=== PATIENT | female | born 1970 | race Caucasian/White ===

== ENCOUNTER 2016-12-25 14:35 | Emergency (ER) | payer OTHER ==
[2016-12-25 14:40] VITALS: BP 161/73
--- NOTE | 2016-12-25 15:30 | UC ---
General HPI - HPI Summary HPI Summary: The patient comes in today for: 1. Right shoulder pain, "feel like my throat is swollen," "neck is stiff and sore," "achey like the flu," Onset: 3 days ago. Palliative/provocative: ibuprofen makes the symptoms go away. Sleep makes it better. Quality: Ache Region: Right shoulder, posterior neck, and neck Severity: Shoulder pain: 10/10 "or more." Neck pain: 7/10. However, she is not grimacing or having any crying or psychomotor slowing. She is able to carry on a slow and easy conversation with no problems. Time: Neck pain is always there as is the shoulder pain. Associated symptoms: Numbness: none. Fevers: She states that she has had some tingling in her feet. She has never had Lyme before nor any testing for it. * - History of Current Complaint Chief Complaint: COREYkin Stated Complaint: BUG BITE W/RASH,JOINT PAIN, THROAT COMPLAINT Time Seen by Provider: 12/25/16 15:22 Hx Obtained From: Patient - Allergy/Home Medications Allergies/Adverse Reactions: Allergies Allergy/AdvReac Type Severity Reaction Status Date / Time Amoxicillin [From Augmentin] AdvReac Vomiting Verified 12/25/16 14:40 Clavulanic Acid AdvReac Vomiting Verified 12/25/16 14:40 [From Augmentin] PMH/Surg Hx/FS Hx/Imm Hx Previously Healthy: No Neurological History: Seizures Other History Of: Negative For: HIV, Hepatitis B, Hepatitis C, Anticoagulant Therapy - Surgical History Surgical History: Yes Surgery Procedure, Year, and Place: 2 C-SECTIONS, TUBAL LIGATION, T&A, COLPOSCOPY - Family History Known Family History: Negative: Cardiac Disease, Hypertension, Diabetes - Social History Occupation: Employed Full-time Alcohol Use: Rare Substance Use Type: None Smoking Status (MU): Light Every Day Tobacco Smoker - Immunization History Most Recent Tetanus Shot: UNSURE Review of Systems Constitutional: Negative Skin: Negative Eyes: Negative ENT: Negative Respiratory: Negative Cardiovascular: Negative Gastrointestinal: Negative Genitourinary: Negative All Other Systems Reviewed And Are Negative: Yes Physical Exam Triage Information Reviewed: Yes Appearance: Well-Appearing, No Pain Distress, Well-Nourished Vital Signs: Initial Vital Signs Temp 97.8 F 12/25/16 14:37 Pulse 88 12/25/16 14:37 Resp 16 12/25/16 14:37 BP 161/73 12/25/16 14:37 Pulse Ox 98 12/25/16 14:37 Vital Signs Reviewed: Yes Eyes: Positive: Conjunctiva Clear. Negative: Discharge ENT: Positive: Hearing grossly normal. Negative: Pharyngeal erythema, Nasal drainage, TM bulging, TM dull, TM red, Tonsillar swelling, Tonsillar exudate Dental: Negative: Gross Decay/Caries @, Dental Fracture @ Neck: Positive: Supple, Nontender, No Lymphadenopathy. Negative: Nuchal Rigidity Respiratory: Positive: Chest non-tender, Lungs clear, No respiratory distress, No accessory muscle use. Negative: Crackles, Wheezing Cardiovascular: Positive: RRR, No Murmur Abdomen Description: Positive: Nontender, No Organomegaly, Soft. Negative: Distended, Guarding Musculoskeletal: Positive: Strength Intact, ROM Intact, No Edema, Other: - She has tenderness to palpation around the AC joint. She also has tenderness to palpation of the right paraspinous musculature. She has no nuchal rigidity. Neurological: Positive: Alert, Muscle Tone Normal Psychological: Positive: Age Appropriate Behavior, Consolable Skin: Positive: rashes - There is a large erythematous macular rash around the right shoulder and under the right shoulder.. 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 Radiology Interpretation Completed By: Radiologist Course/Dx - Course Course Of Treatment: Patient was told that I was concerned that she may have Lyme disease. She was told that she will have blood drawn and started on doxycycline for the presumed LYme disease. - Differential Dx - Multi-Symptom Provider Diagnoses: Right shoulder pain. Posterior neck pain. Erythema migrans. Lyme disease Discharge - Discharge Plan Condition: Stable Disposition: HOME Patient Education Materials: Lyme Disease (ED) Referrals: Micah Yoder MD [Primary Care Provider] - 1 Week (Please see your primary care provider in about a week to see how well you are doing. If you get worse between now and then, please be seen sooner by us or the ER.)
[2016-12-25] MEDS ORDERED: Naproxen TAB* 250 MG PO ONE (15:50)
--- NOTE | 2016-12-25 16:19 | RAD ---
Indication: Right shoulder pain. 3 views of the right shoulder demonstrates AC joint arthritis. There is no fracture or dislocation. No other bone or joint abnormality is noted. IMPRESSION: Moderate degree of AC joint arthritis without fracture.
== END 2016-12-25 16:25 | disposition home or self-care (01) ==
LOC: UCEAST 14:35
DX: M25.511 Pain in right shoulder (principal); M54.2 Cervicalgia; A26.0 Cutaneous erysipeloid; A69.20 Lyme disease, unspecified; Z72.0 Tobacco use
CPT/HCPCS: 86617; 86618; 99212; A9270-GY; G0463

== ENCOUNTER 2019-01-19 20:47 | Emergency (ER) | payer OTHER ==
--- OUTSIDE RECORDS SUMMARY | 2019-01-19 20:51 | XMS REPORT | Continuity of Care Document ---
:1970 External Reference #:[id number] Author Name Elle Vivar Care Team Providers Name Role Phone Micah Yoder MD Primary Care Physician Unavailable Payers Date Identification Numbers Payment Provider Subscriber Expires: 2015 Policy Number: [id number] Medicaid Yaritza Polanco Group Name: 1 1 [address] PayID: [id number] [place] [address] Effective: 2015 Policy Number: [id number] Cesar Chavez Yaritza Polanco PayID: [id number] [address] [place] [address] Problems Active Problems Provider Date Generalized epilepsy Peg Guerrier M.D. Onset: 01/28/2015 Shoulder joint pain Peg Guerrier M.D. Onset: 01/28/2015 Chronic otitis externa Robin Ferguson M.D. Onset: 03/08/2015 Impacted cerumen Robin Ferguson M.D. Onset: 03/08/2015 Sleep apnea Peg Guerrier M.D. Onset: 06/01/2016 Morbid obesity Phill Kiran M.D. Onset: 08/29/2018 Skin sensation disturbance Phill Kiran M.D. Onset: 05/30/2018 Epilepsy Phill Kiran M.D. Onset: 05/30/2018 Family History Date Family Member(s) Observation Comments General Thyroid Disease General Hypertension General Kidney Disease Father due to Kidney failure () - Due to strep throat Siblings 2 Social History Type Date Description Comments Sex Unknown Marital Status Lives With Alone Occupation Unemployed Hand Dominance Left-handed Tobacco Use Start: Unknown Patient is a current cigarette smoker, smokes every day Tobacco Use Start: Unknown Current Cigarette Smoker 5-10 Cigarettes Daily Tobacco Use Start: Unknown Never Smoked Cigars Tobacco Use Start: Unknown Never Smoked A Pipe Smokeless Tobacco Never Used Smokeless Tobacco ETOH Use Denies alcohol use Tobacco Use Start: Unknown Patient is a former End: Unknown smoker Recreational Drug Use Never Used Drugs Tobacco Use Start: Unknown Light tobacco smoker Occasionally smokes (10 or fewer when stressed cigarettes/day) Smoking Status Reviewed: 12/23/18 Light tobacco smoker Occasionally smokes (10 or fewer when stressed cigarettes/day) Exercise Type/Frequency Exercises regularly Pt. has 5 dogs. Allergies, Adverse Reactions, Alerts Active Allergies Reaction Severity Comments Date Augmentin stomach upset 06/01/2016 Inactive Allergies NKDA 09/26/2010 Medications Active Medications SIG Qnty Indications Ordering Provider Date Levetiracetam 1 tab by mouth 180tabs Stiven Tyson, 03/26/2015 1000mg twice a day N.P. Tablets Topiramate 1 tab by mouth 180tabs Stiven Tyson, 10/25/2012 100mg Tablets twice a day N.P. History Medications Mometasone Furoate mix 50:50 with 60ml [facility] 03/22/2015 - 0.1% olive oil and Glenn Ferguson 05/31/2016 Solution instill 2 to 3 drops in each ear as needed Ofloxacin (Otic) 3 drops affected 1units H60.8x1 [facility] 03/08/2015 - 0.3% ear twice a day Glenn Ferguson 05/31/2016 Solution Betamethasone to apply to 15g H60.8x1 [facility] 03/08/2015 - Dipropionate affected area Glenn Ferguson 05/31/2016 0.05% twice a day Ointment Levetiracetam 2 tabs by mouth 120tabs Ale Son NP 07/11/2013 - 500mg twice a day 03/26/2015 Tablets Mometasone Furoate Up light to both 1units [facility] 08/26/2012 - 0.1% ears t.i.d. or Glenn Ferguson 07/11/2013 Solution drops Dermotic applied the both 1units 380.23 [facility] 08/12/2012 - 0.01% Oil ears once a day Glenn Ferguson 07/11/2013 x1 month Vosol HC 3 gtts bid both 1units [facility] 08/12/2012 - 2-1% Solution ears Glenn Ferguson 07/11/2013 Elocon apply sparingly 1units 380.23 [facility] 08/05/2012 - 0.1% Ointment to both sides Glenn Ferguson 07/11/2013 affected area ears dispense one tube Topamax 1 1/2- 2 tabs by 60tabs Peg Guerrier, 06/07/2012 - 100mg Tablets mouth every day [facility] 07/11/2013 as directed Hydrocortisone Cream apply bid as 30gm [facility] 12/19/2010 - 1% needed Glenn Ferguson 07/11/2013 Clotrimazole 5 drops into r 45gm [facility] 11/28/2010 - 1% ear bid Glenn Ferguson 12/05/2010 Solution Cream Hydrocortisone Cream apply bid as 30gm [facility] 10/17/2010 - 1% needed Glenn Ferguson 11/28/2010 Lotrimin AF 5 drops right 1units 380.23 [facility] 10/17/2010 - 1% Solution ear b.i.dLovely Ferguson M.D. 11/28/2010 Elocon applied to 15g 380.23 [facility] 10/17/2010 - 0.1% Ointment affected area Glenn Ferguson 11/28/2010 b.i.d. Alcohol And Vinegar bid [facility] - Glenn Ferguson 10/16/2011 Lotrimin Ultra apply to 50units Unknown - 1% Cream affected area 07/11/2013 twice a day Multivitamins 1 po qd 100tabs Unknown - Tablets 12/22/2018 Vitamin D3 1 po qd 90caps Unknown - 1000Unit 08/28/2013 Capsules Vitamin C CR 1 po bid Unknown - 500mg 05/31/2016 Tablets ER Vitamin D3 one tablet by Unknown - 2000Unit mouth every day 06/11/2017 Tablets Magnesium 1 by mouth every Unknown - 250mg Tablets day 12/22/2018 Potassium 1-4 tabs po qd Unknown - 99mg Tablets 12/22/2018 Vital Signs Date Vital Result Comment 12/23/2018 9:44am Height 66 inches 5'6" Weight 334.00 lb Heart Rate 90 /min BP Systolic 124 mmHg BP Diastolic 84 mmHg BMI (Body Mass Index) 53.9 kg/m2 09/13/2018 1:47pm Height 66 inches 5'6" Weight 336.38 lb Heart Rate 80 /min BP Systolic Sitting 124 mmHg Lue regular cuff (forearm) BP Diastolic Sitting 82 mmHg Lue regular cuff (forearm) Respiratory Rate 20 /min O2 % BldC Oximetry 94 % BMI (Body Mass Index) 54.3 kg/m2 Neck Circumference in inches 17 08/29/2018 2:32pm Height 66 inches 5'6" Weight 338.00 lb Heart Rate 82 /min BP Systolic 138 mmHg BP Diastolic 82 mmHg BMI (Body Mass Index) 54.5 kg/m2 05/30/2018 10:23am Height 66 inches 5'6" Weight 324.00 lb Heart Rate 68 /min BP Systolic 128 mmHg BP Diastolic 82 mmHg BMI (Body Mass Index) 52.3 kg/m2 06/12/2017 9:51am Height 66 inches 5'6" Weight 300.38 lb Heart Rate 78 /min BP Systolic Sitting 128 mmHg BP Diastolic Sitting 80 mmHg Respiratory Rate 16 /min BMI (Body Mass Index) 48.5 kg/m2 06/01/2016 2:55pm Height 66 inches 5'6" Weight 300.00 lb Heart Rate 76 /min BP Systolic Sitting 128 mmHg BP Diastolic Sitting 84 mmHg Respiratory Rate 16 /min BMI (Body Mass Index) 48.4 kg/m2 03/22/2015 3:01pm Heart Rate 76 /min BP Systolic Sitting 124 mmHg BP Diastolic Sitting 82 mmHg 03/15/2015 3:28pm Heart Rate 78 /min BP Systolic Sitting 124 mmHg BP Diastolic Sitting 88 mmHg 03/08/2015 2:55pm Weight 303.00 lb Heart Rate 80 /min BP Systolic Sitting 132 mmHg BP Diastolic Sitting 80 mmHg 01/28/2015 10:46am Height 66 inches 5'6" Weight 300.00 lb Heart Rate 68 /min BP Systolic Sitting 132 mmHg BP Diastolic Sitting 80 mmHg Respiratory Rate 16 /min BMI (Body Mass Index) 48.4 kg/m2 07/30/2014 9:00am Height 66 inches 5'6" Weight 303.00 lb Heart Rate 80 /min BP Systolic Sitting 128 mmHg BP Diastolic Sitting 84 mmHg Respiratory Rate 16 /min BMI (Body Mass Index) 48.9 kg/m2 01/29/2014 9:47am Height 66 inches 5'6" Weight 295.00 lb Heart Rate 98 /min BP Systolic Sitting 124 mmHg BP Diastolic Sitting 86 mmHg Respiratory Rate 16 /min BMI (Body Mass Index) 47.6 kg/m2 08/28/2013 8:42am Heart Rate 72 /min BP Systolic Sitting 128 mmHg BP Diastolic Sitting 86 mmHg Respiratory Rate 16 /min 07/11/2013 9:51am Heart Rate 72 /min BP Systolic Sitting 140 mmHg BP Diastolic Sitting 80 mmHg Respiratory Rate 16 /min 06/21/2012 11:32am Heart Rate 76 /min BP Systolic 118 mmHg BP Diastolic 76 mmHg Respiratory Rate 16 /min 09/26/2010 8:55am Heart Rate 88 /min BP Systolic Sitting 132 mmHg BP Diastolic Sitting 80 mmHg Results Test Date Facility Test Result H/L Range Note Comp Metabolic Panel 10/25/2012 [facility] Sodium 142 mmol/L 133-[address] [place] [address] [phone] Potassium 4.5 mmol/L 3.5-5.0 Chloride 113 mmol/L High 101-111 Co2 Carbon Dioxide 25.0 mmol/L 22-32 Anion Gap 4.0 mmol/L 2-11 Glucose 98 mg/dL 70-100 Blood Urea Nitrogen 17 mg/dL 6-24 Creatinine 0.90 mg/dL 0.50-1.40 BUN/Creatinine Ratio 18.9 8-20 Calcium 10.9 mg/dL High 8.1-9.9 Total Protein 6.5 g/dL 6.2-8.1 Albumin 3.6 g/dL 3.6-5.4 Globulin 2.9 g/dL 2-4 Albumin/Globulin Ratio 1.2 1-3 Total Bilirubin 0.5 mg/dL 0.4-1.5 Alkaline Phosphatase 75 U/L 30-110 Alt 17 U/L 14-54 Ast 17 U/L 12-42 Egfr Non- 68.0 >60 Egfr 87.5 >60 1 CBC With 10/25/2012 [facility] White Blood 12.0 10^3/uL High 4.8-10.8 Manual Diff [address] [place] [address] [phone] Red Blood Count 4.04 10^6/uL 4.0-5.4 Hemoglobin 12.0 g/dL 12.0-16.0 Hematocrit 36 % 35-47 Mean Corpuscular Volume 89 fL 80-97 Mean Corpuscular Hemoglobin 30 pg 27-31 Mean Corpuscular HGB Conc 33 g/dL 31-36 Red Cell Distribution Width 14 % 10.5-15 Platelet Count 294 10^3/uL 150-450 Mean Platelet Volume 9 um3 7.4-10.4 Abs Neutrophils 8.9 10^3/uL High 1.5-7.7 Abs Lymphocytes 2.0 10^3/uL 1.0-4.8 Abs Monocytes 0.8 10^3/uL 0-0.8 Abs Eosinophils 0.2 10^3/uL 0-0.6 Abs Basophils 0 10^3/uL 0-0.2 Abs Nucleated RBC 0 10^3/uL Neutrophil % 79 % 38-83 Band % 1 % 0-8 Lymphocytes % 15 % Low 25-47 Monocytes % 3 % 0-13 Eosinophils % 2 % 0-6 RBC Morphology Normal Normal 1 Because ethnic data is not always readily available, this report includes an eGFR for both -Americans and non- Americans. The National Kidney Disease Education Program (NKDEP) does not endorse the use of the MDRD equation for patients that are not between the ages of 18 and 70, are , have extremes of body size, muscle mass, or nutritional status, or are non- or non-. According to the National Kidney Foundation, irrespective of diagnosis, the stage of the disease is based on the level of kidney function: Stage Description GFR(mL/min/1.73 m(2)) 1 Kidney damage with normal or decreased GFR 90 2 Kidney damage with mild decrease in GFR 60-89 3 Moderate decrease in GFR 30-59 4 Severe decrease in GFR 15-29 5 Kidney failure <15 (or dialysis) Procedures Date Code Description Status 07/12/2018 40572 Polysomnography Sleep Staging 4+ Parameters Completed 03/15/2015 29432 Remove Impacted Cerumen Completed 08/27/2013 04800 Polysomnography Sleep Staging 4+ Parameters Completed 08/12/2012 38216 Remove Impacted Cerumen Completed 02/06/2011 44248 Tympanometry Completed Encounters Type Date Location Provider Dx Diagnosis Office Visit 09/13/2018 Pulmonology And Karmen Brandon G47.33 Obstructive sleep 2:15p Sleep Services Of apnea (adult) Child Care Coordinator (pediatric) Z68.43 Body mass index (BMI) 50-59.9, adult Office Visit 08/29/2018 Shun Kiran G47.33 Obstructive sleep 3:15p Neurologic Glenn apnea (adult) Services Of Child Care Coordinator (pediatric) G40.909 Epilepsy, unsp, not intractable, without status epilepticus E66.01 Morbid (severe) obesity due to excess calories Office Visit 05/30/2018 Shun Pollock G40.909 Epilepsy, unsp, 10:30a Luis Kiran M.D. not intractable, Services Of Child Care Coordinator without status epilepticus R20.2 Paresthesia of skin G47.30 Sleep apnea, unspecified Office Visit 06/12/2017 Shun Parra G40.909 Epilepsy, unsp, 9:45a Neurologic Glenn Guerrier not intractable, Services Of Child Care Coordinator without status epilepticus R20.2 Paresthesia of skin Office Visit 06/01/2016 Shun Parra G40.909 Epilepsy, unsp, 2:45p Neurologic Glenn Guerrier not intractable, Services Of Child Care Coordinator without status epilepticus G47.30 Sleep apnea, unspecified Office Visit 03/22/2015 3:15p ENT Services Of [place] H60.61 Unspecified C.M.A. AT Glenn Ferguson chronic otitis [place] externa, right ear Office Visit 03/15/2015 3:15p [facility] [place] H61.21 Impacted cerumen, C.M.A. AT Glenn Ferguson right ear [place] H60.8x1 Other otitis externa, right ear Office Visit 03/08/2015 2:45p [facility] [place] 380.23 Otitis Externa C.M.A. AT Glenn Ferguson Other Chronic [place] 380.4 Impacted Cerumen Office Visit 01/28/2015 10:45a Shun Parra 345.90 Epilepsy Unspec Luis Guerrier M.D. W/O Intractable Services Of [facility] 726.10 Bursae & Tendon Disorders Shoulder Region Unspec Office Visit 07/30/2014 9:45a Shun Parra 345.90 Epilepsy Unspec Neurologic Glenn Guerrier W/O Intractable [facility] 784.0 Headache 339.10 Tension Type Headache, Unspecified Office Visit 01/29/2014 Shun Parra 345.00 Epilepsy 9:45a Neurologic Glenn Guerrier Nonconvulsive W/O Services Of [facility] Care Coordinator Intractable Office Visit 08/28/2013 Shun Parra 345.00 Epilepsy 8:45a Luis Guerrier M.D. Nonconvulsive W/O [facility] Intractable Office Visit 07/11/2013 Shun Parra 345.90 Epilepsy Unspec W/O 9:45a Luis Guerrier M.D. Intractable Services Of [facility] Office Visit 02/28/2013 Shun Parra 345.90 Epilepsy Unspec W/O 9:45a Luis Guerrier M.D. Intractable Services Of [facility] Care Coordinator Office Visit 10/25/2012 Shun Parra 345.90 Epilepsy Unspec W/O 8:45a Luis Guerrier M.D. Intractable Services Of [facility] Care Coordinator Office Visit 09/02/2012 [facility] 380.23 Otitis Externa 9:45a C.M.A. AT Glenn Ferguson Other Chronic [place] Office Visit 08/12/2012 [facility] 380.23 Otitis Externa 9:45a C.M.A. AT Glenn Ferguson Other Chronic [place] 380.4 Impacted Cerumen Office Visit 08/05/2012 [facility] 380.23 Otitis Externa 9:30a C.M.A. AT Glenn Ferguson Other Chronic [place] Office Visit 06/21/2012 Shun Parra 345.90 Epilepsy Unspec 11:15a Luis Guerrier M.D. W/O Intractable [facility] Office Visit 04/26/2012 Shun Parra 345.90 Epilepsy Unspec 8:45a Luis Guerrier M.D. W/O Intractable Services Of Child Care Coordinator Office Visit 10/16/2011 [facility] 380.23 Otitis Externa 9:15a C.M.A. AT [place] Ferguson. Other Chronic [place] 786.59 Pain Chest Other Office Visit 02/13/2011 10:00a [facility] [place] 380.23 Otitis Externa C.M.A. AT Glenn Ferguson Other Chronic [place] Office Visit 02/06/2011 9:00a [facility] [place] 380.23 Otitis Externa C.M.A. AT Glenn Ferguson Other Chronic [place] Office Visit 01/02/2011 9:45a [facility] [place] 380.23 Otitis Externa C.M.A. AT Glenn Ferguson Other Chronic [place] Office Visit 12/19/2010 9:00a [facility] [place] 380.23 Otitis Externa C.M.A. AT Glenn Ferguson Other Chronic [place] Office Visit 12/05/2010 9:00a [facility] [place] 380.23 Otitis Externa C.M.A. AT Glenn Ferguson Other Chronic [place] Office Visit 11/28/2010 9:15a [facility] [place] 380.23 Otitis Externa C.M.A. AT Glenn Ferguson Other Chronic [place] Office Visit 10/17/2010 9:30a [facility] [place] 380.23 Otitis Externa C.M.A. AT Glenn Ferguson Other Chronic [place] Office Visit 10/03/2010 9:00a [facility] [place] 380.23 Otitis Externa C.M.A. AT Glenn Ferguson Other Chronic [place] Office Visit 09/26/2010 9:30a [facility] [place] 380.23 Otitis Externa C.M.A. AT Glenn Ferguson Other Chronic [place] Plan of Treatment Future Appointment(s):03/28/2019 11:00 am - Stiven Tyson NAnnalisa at [place] [facility]05/26/2019 3:15 pm - Phill Kiran M.D. at [place] [facility]12/23/2018 - Stiven Tyson N.P.E66.01 Morbid (severe) obesity due to excess [id number] Epilepsy, unspecified, not intractable, without status epileNew Labs:CMP Panel, Ordered: 12/23/18CBC W/ Auto Diff, Ordered: 12/23/18Levetiracetam, Ordered: 12/23/18Topiramate, Ordered : 12/23/18Vitamin B12, Ordered: 12/23/18Folate Serum, Ordered: 12/23/18TSH Thyroid Stimulating Horm, Ordered: 12/23/18T4 Free Thyroxine, Ordered: Recommendations:have your labs done fasting in the [id number] HeadacheFollow up:3 months and as neededRecommendations:Riboflavin( Vitamin b-2) 400 mg duonnS84.83 Other fatigue
[2019-01-19 20:58] VITALS: BP 172/93
--- NOTE | 2019-01-19 21:55 | UC ---
Lower Extremity/Ankle HPI - HPI Summary HPI Summary: Patient presents for evaluation of her left lower extremity. Patient states she was walking when she is slipped Patient was wearing shoes without a consult. Patient states her leg went back then came fowar Patient with pain in the dorsum of her foot, dorsum of her knee, lateral ankle. Patient did not take anything for pain. Patient did apply ice. States his injury happened a few hours ago but hasn't gotten better ankles were swollen. Patient with a remote history of fracture to the same. Patient denies any paresthesias or weakness. Patient's medications reviewed this visit. Patient denies any other injuries. denies pain worse with walking not anticoagulated - History of Current Complaint Chief Complaint: UCLowerExtremity Stated Complaint: L LEG INJURY Time Seen by Provider: 01/19/19 20:58 Hx Obtained From: Patient Hx Last Menstrual Period: menopausal Severity Currently: Moderate Pain Intensity: 8 Pain Scale Used: 0-10 Numeric - Allergies/Home Medications Allergies/Adverse Reactions: Allergies Allergy/AdvReac Type Severity Reaction Status Date / Time amoxicillin [From Augmentin] Allergy Vomiting Verified 01/19/19 20:59 clavulanic acid Allergy Vomiting Verified 01/19/19 20:59 [From Augmentin] PMH/Surg Hx/FS Hx/Imm Hx Previously Healthy: Yes Other History Of: Negative For: HIV, Hepatitis B, Hepatitis C, Anticoagulant Therapy - Surgical History Surgical History: Yes Surgery Procedure, Year, and Place: 2 C-SECTIONS, TUBAL LIGATION, T&A, COLPOSCOPY - Family History Known Family History: Negative: Cardiac Disease, Hypertension, Diabetes - Social History Alcohol Use: Rare Substance Use Type: None Smoking Status (MU): Light Every Day Tobacco Smoker - Immunization History Most Recent Tetanus Shot: UNSURE Review of Systems All Other Systems Reviewed And Are Negative: Yes Constitutional: Positive: Negative Skin: Positive: Other - abraison Eyes: Positive: Negative Motor: Positive: Other - left LE Physical Exam - Summary Physical Exam Summary: Vital Signs Reviewed: Yes A+Ox3, no distress Eyes: Conjunctiva Clear ENT: Hearing grossly normal neck: supple Respiratory: Positive: No respiratory distress, No accessory muscle use Cardiovascular: skin color reflect adequate perfusion Musculoskeletal Exam : walk with limp favoring lle + SLE + flex/ext knee with mild discomfort mid tibia + flex/ext ankle with pain lateral malleolus and dorsum lateral foot. no crepitus no pain phalanges, no knee pain Neurological: Positive: Alert, + grss sensaiton Psychological: Positive: Normal Response To examiner Skin: Positive: no rash, no ecchymosis, mild edema lateral ankle and dorsum foot , no ecchyjosis small, non suturable abraison prox tib Triage Information Reviewed: Yes Vital Signs: Initial Vital Signs Temp 98.2 F 01/19/19 20:52 Pulse 90 01/19/19 20:52 Resp 18 01/19/19 20:52 BP 172/93 01/19/19 20:52 Pulse Ox 99 01/19/19 20:52 Diagnostics - Radiology No standard instances Radiology Interpretation Completed By: ED Physician - chip avulsion fracture dorsum talus neg ankle neg tib/fib Lower Extremity Course/Dx - Course Course Of Treatment: Patient presents to urgent care complaining of pain in the left lower extremity. Patient states she slipped earlier with mechanical fall. No strike her head. No neck or back pain. Patient sustained abrasion to her mid proximal tibia. Patient with pain in the dorsum of her left foot as well as left lateral malleolus and proximal tibia. No knee pain. Patient didn't take any. Patient apply ice. Patient with a remote history of injury to same ankle. On exam vital signs stable. Patient with a nonsuturable abrasion. Patient does not last tetanus was so update that today. Patient also with tenderness on the dorsum of her left foot as well as on the lateral malleolus. We'll check imaging. Patient will be likely tonight. Anticipate crutches Xavier and air splint. Motrin Tylenol elevate and with ortho follow-up. - Differential Dx/Diagnosis Provider Diagnosis: Avulsion fracture of left talus, Ankle sprain Discharge - Sign-Out/Discharge Documenting (check all that apply): Patient Departure All imaging exams completed and their final reports reviewed: No - Discharge Plan Condition: Stable Disposition: HOME Patient Education Materials: Diphtheria/Acellular Pertussis/Tetanus Booster Vaccine (By injection), Ankle Sprain (ED), Crutch Instructions (ED), Ankle Stirrup Splint (ED) Referrals: Micah Yoder MD [Primary Care Provider] - Ivett Garces MD [Medical Doctor] - Additional Instructions: -wear xavier wrap for comfort and support -apply ice (20 min at a time) every 2-3 hours for the next 2 days -use crutches until you can walk normally without a limp -Elevate your leg - this will help with swelling and pain - Alternate ibuprofen (advil, Motrin) 600mg and tylenol every 3 hours for pain. Take with food. Do NOT take for more than 4-5 days -Contact the orthopedic provider tomorrow morning to arrange a follow-up appointment this week. Contact your doctor or return with questions or concerns - Your arm will likely be sore tomorrow from your tetanus vaccine - this is normal As discussed, your radiograph was reviewed by the provider that treated you tonight. It will be read by a radiologist tomorrow morning. If there is a finding other than that discussed with you today, you will receive a call from a care provider. - Billing Disposition and Condition Condition: STABLE Disposition: Home
[2019-01-19] MEDS ORDERED: Tetan/Diph/Pertus SYR(Tdap)* 0.5 ML SYR(BOOSTRIX) use SYR IM ONE (22:03)
--- NOTE | 2019-01-20 07:53 | UC ---
- Progress Note Progress Note: I called pt re xr results at 7:50 AM No answer unable to leave message....mail box full please continue to try to contact patient no change in RX but needs to see Dr. Garces in follow up Course/Dx - Diagnoses Provider Diagnoses: Avulsion fracture of left talus Discharge - Sign-Out/Discharge Documenting (check all that apply): Patient Departure All imaging exams completed and their final reports reviewed: Yes - Discharge Plan Condition: Stable Disposition: HOME Patient Education Materials: Diphtheria/Acellular Pertussis/Tetanus Booster Vaccine (By injection), Ankle Sprain (ED), Crutch Instructions (ED), Ankle Stirrup Splint (ED) Referrals: Micah Yoder MD [Primary Care Provider] - Ivett Garces MD [Medical Doctor] - Additional Instructions: -wear rayshawn wrap for comfort and support -apply ice (20 min at a time) every 2-3 hours for the next 2 days -use crutches until you can walk normally without a limp -Elevate your leg - this will help with swelling and pain - Alternate ibuprofen (advil, Motrin) 600mg and tylenol every 3 hours for pain. Take with food. Do NOT take for more than 4-5 days -Contact the orthopedic provider tomorrow morning to arrange a follow-up appointment this week. Contact your doctor or return with questions or concerns - Your arm will likely be sore tomorrow from your tetanus vaccine - this is normal As discussed, your radiograph was reviewed by the provider that treated you tonight. It will be read by a radiologist tomorrow morning. If there is a finding other than that discussed with you today, you will receive a call from a care provider. - Billing Disposition and Condition Condition: STABLE Disposition: Home
== END 2019-01-19 22:22 | disposition home or self-care (01) ==
LOC: UCEAST 20:47
DX: S92.102 Unspecified fracture of left talus (principal); W18.40XD Slipping, tripping and stumbling without falling, unspecified, subsequent encounter; F17.210 Nicotine dependence, cigarettes, uncomplicated
CPT/HCPCS: 90715; 99212; G0463

== ENCOUNTER 2019-02-20 20:40 | Inpatient (IN) | payer OTHER ==
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
--- OUTSIDE RECORDS SUMMARY | 2019-02-20 22:10 | XMS REPORT | Summary of Care ---
:1970 Author Organization [facility] Address [address] [facility] [place] [address] Care Team Providers Name Role Phone Micah Yoder MD Primary Care Provider Reason for Visit Reason Comments Surgery Consult NEW, Right flank nodules Refer to Department Only (Routine) Status Reason Specialty Diagnoses / Referred By Referred To Procedures Contact Contact Closed GENERAL SURGERY / Diagnoses Subcutaneous nodule Debra Calvillo Miner, Jean F, MD General Surgery PA-C [address] [facility] [address] [facility] [address] [address] [place] [address] Phone: Encounter Details Date Type Department Care Team Description 02/07/2019 Office Visit Stow Bimal Godoy MD Subcutaneous nodule Surgery [address] [facility] (Primary Dx) [address] [facility] [place] [address] [place] [address] Allergies Active Allergy Reactions Severity Noted Date Comments Augmentin GI Reaction 09/29/2015 documented as of this encounter (statuses as of 02/08/2019) Medications Medication Sig Dispensed Refills Start Date End Date Status levetiracetam Take 1,000 0 Active (KEPPRA) 500 MG mg by mouth Oral Tab DAILY. topiramate 0 12/28/2018 Active (TOPAMAX) 100 MG Oral Tab Vitamin A 7500 Take 1 Cap 0 Discontinued UNITS Oral Cap by mouth 9 (Error) DAILY. Vitamin E 100 UNITS Take 1 Cap 0 Discontinued Oral Cap by mouth 9 (Error) DAILY. Levetiracetam 1000 0 12/28/2018 Discontinued MG Oral Tab 9 (Error) furosemide (LASIX) Take 1 Tab 5 Tab 0 01/07/2019 Discontinued 20 MG Oral Tab by mouth 9 (Error) DAILY. documented as of this encounter (statuses as of 02/08/2019) Active Problems Problem Noted Date Dermatophytosis of nail 07/29/2011 Seizure disorder 07/29/2011 Migraine, unspecified, without mention of intractable migraine without 2011 mention of status migrainosus Obesity, unspecified 07/29/2011 Seborrheic dermatitis, unspecified 07/29/2011 Adult BMI 45.0-49.9 kg/sq m documented as of this encounter (statuses as of 02/08/2019) Social History Tobacco Use Types Packs/Day Years Used Date Former Smoker Cigarettes 2.5 29 Quit: 06/13/2011 Smokeless Tobacco: Never Used Alcohol Use Drinks/Week oz/Week Comments Yes rare Sex Assigned at Date Recorded Not on file Job Start Date Occupation Industry Not on file Not on file Not on file Travel History Travel Start Travel End No recent travel history available. documented as of this encounter Last Filed Vital Signs Vital Sign Reading Time Taken Comments Blood Pressure - - Pulse 110 02/07/2019 12:26 PM EDT Temperature - - Respiratory Rate 18 02/07/2019 12:26 PM EDT Oxygen Saturation 97% 02/07/2019 12:26 PM EDT Inhaled Oxygen Concentration - - Weight 147.2 kg (324 lb 9.6 oz) 02/07/2019 12:26 PM EDT Height 167.6 cm (5' 6") 02/07/2019 12:26 PM EDT Body Mass Index 52.39 02/07/2019 12:26 PM EDT documented in this encounter Progress Notes Bimal Bran MD - 02/07/2019 12:30 PM EDT Lipoma Consult Office Visit PATIENT: Yaritza Polanco : 1970 DATE OF SERVICE: 02/08/2019 Debra Calvillo PA-C [address] [place] [address] Micah Yoder Chief Complaint Patient presents with Surgery Consult NEW, Right flank nodules HISTORY OF PRESENT ILLNESS: Patient presents to the office with a a few month history of back swelling. It has not increased in size since initially noticed. It does occasionally cause pain and discomfort. No drainage noted. Imaging was performed. A comprehensive review of systems was negative except for: Musculoskeletal: positive for back pain Past Medical History: Diagnosis Date Adult BMI 45.0-49.9 kg/sq m (HCC) Cervical dysplasia Edema Hyperparathyroidism (HCC) Lyme disease 2017 Obesity FRANCISCO (obstructive sleep apnea) Seizure (HCC) Past Surgical History: Procedure Laterality Date BILAT TUBAL DESTRUCT NEC SECTION NOS TONSILLECTOMY Social History Socioeconomic History Marital status: Spouse name: Not on file Number of children: Not on file Years of education: Not on file Highest education level: Not on file Occupational History Not on file Social Needs Financial resource strain: Not on file Food insecurity: Worry: Not on file Inability: Not on file Transportation needs: Medical: Not on file Non-medical: Not on file Tobacco Use Smoking status: Former Smoker Packs/day: 2.50 Years: 29.00 Pack years: 72.50 Types: Cigarettes Last attempt to quit: 06/13/2011 Years since quittin.6 Smokeless tobacco: Never Used Substance and Sexual Activity Alcohol use: Yes Comment: rare Drug use: No Sexual activity: Not on file Lifestyle Physical activity: Days per week: Not on file Minutes per session: Not on file Stress: Not on file Relationships Social connections: Talks on phone: Not on file Gets together: Not on file Attends zoroastrian service: Not on file Active member of club or organization: Not on file Attends meetings of clubs or organizations: Not on file Relationship status: Not on file Intimate partner violence: Fear of current or ex partner: Not on file Emotionally abused: Not on file Physically abused: Not on file Forced sexual activity: Not on file Other Topics Concern Not on file Social History Narrative Outpatient Medications as of 02/07/2019 Medication Sig Dispense Refill levetiracetam (KEPPRA) 500 MG Oral Tab Take 1,000 mg by mouth DAILY. topiramate (TOPAMAX) 100 MG Oral Tab 0 No current facility-administered medications on file as of 02/07/2019. Allergies Allergen Reactions Augmentin GI Reaction PHYSICAL EXAMINATION: Pulse 110 | Resp 18 | Ht 5' 6" (1.676 m) | Wt 324 lb 9.6 oz (147.2 kg) | SpO2 97% | BMI 52.39 kg/m GENERAL: alert, oriented, no acute distress. SKIN: normal, no rashes or abnormalities noted. 1 cm x 1 cm swelling c/w lipoma of the back HEAD: normocephalic, atraumatic ENT: sclera normal, anicteric, mucous membrane moist NECK: no mass, trachea midline, no thyromegaly. LUNGS: nonlabored breathing, no respiratory distress EXTREMITIES: no clubbing, cyanosis, or edema. NEUROLOGICAL: Normal gait, no focal deficits MUSCULOSKELETAL: Normal range of motion; no joint deformity noted ASSESSMENT: Lipoma of the back PLAN: Patient does not desire surgery at this time. Surveillance follow up was offered to determine stability but patient prefers to contact us at her convenience. documented in this encounter Plan of Treatment Health Maintenance Due Date Last Done Comments MAMMOGRAM (SCREENING) 10/11/2016 10/12/2015, 03/20/2013, 08/04/2011 COLONOSCOPY SCREENING 2018 ZOSTER IMMUNIZATION SERIES 2018 (1 of 2) LIPID DISORDER SCREENING 08/13/2018 08/13/2013, 08/04/2011 PAP SMEAR 09/28/2018 09/29/2015, 09/29/2015, 09/04/2011, Additional history exists INFLUENZA VACCINE (#1) 2019 DIABETES SCREENING 12/29/2019 12/28/2018, 09/29/2015, 08/13/2013 DEPRESSION SCREENING 01/08/2020 01/07/2019 HPV IMMUNIZATION SERIES Aged Out No longer eligible based on patient's age to complete this topic MENINGOCOCCAL VACCINE IMM Aged Out No longer eligible based on patient's age to complete this topic PNEUMOCOCCAL 0-64 YRS Aged Out No longer eligible based on patient's age to complete this topic documented as of this encounter Results Not on filedocumented in this encounter Visit Diagnoses Diagnosis Subcutaneous nodule - Primary Localized superficial swelling, mass, or lump documented in this encounter Guarantor Name Account Type Relation to Date of Phone Billing Patient Address Yaritza Polanco Personal/Family 1970 [address] ([address]) [phone] [place], [place] (Work) [id number] documented as of this encounter
--- OUTSIDE RECORDS SUMMARY | 2019-02-20 22:10 | XMS REPORT | Continuity of Care Document ---
:1970 External Reference #:[id number] Author Name Nara Cervantes Care Team Providers Name Role Phone Micah Yoder MD Primary Care Physician Unavailable Payers Date Identification Numbers Payment Provider Subscriber Expires: 2015 Policy Number: [id number] Medicaid Yaritza Polanco Group Name: 1 1 [address] PayID: [id number] [place] [address] Effective: 2015 Policy Number: [id number] Khris Yaritza Polanco Group Number: [id number] [address] Group Name: Medicaid [place] [address] PayID: [id number] Problems Active Problems Provider Date Generalized epilepsy [...] Thyroid Disease General Hypertension General Kidney Disease General Cancer Father due to Kidney failure () - Due to strep throat Siblings 2 Social History Type Date Description Comments Sex Unknown Marital Status Lives With Alone Occupation Currently Working Hand Dominance Left-handed Tobacco Use Start: Unknown [...] fewer when stressed cigarettes/day) Smoking Status Reviewed: 01/23/19 Light tobacco smoker Occasionally smokes (10 or [...] Medications Mometasone Furoate mix 50:50 with 60ml [facility] 03/22/2015 - 0.1% olive oil and Glenn Ferguson 05/31/2016 Solution instill 2 to 3 drops in each ear as needed Ofloxacin (Otic) 3 drops affected 1units H60.8x1 [facility] 03/08/2015 - 0.3% ear twice a day Glenn Ferguson 05/31/2016 Solution Betamethasone to apply to 15g H60.8x1 [facility] 03/08/2015 - Dipropionate affected area Glenn Ferguson 05/31/2016 0.05% twice a day Ointment Levetiracetam 2 tabs by mouth 120tabs Ale Son NP 07/11/2013 - 500mg twice a day 03/26/2015 Tablets Mometasone Furoate Up light to both 1units Robin 08/26/2012 - 0.1% ears t.i.dLovely or Gelnn Ferguson 07/11/2013 Solution drops Dermotic applied the both 1units 380.23 [facility] 08/12/2012 - 0.01% Oil ears once a day Glenn Ferguson 07/11/2013 x1 month Vosol HC 3 gtts bid both 1units [facility] 08/12/2012 - 2-1% Solution ears Aida FergusonDLovely 07/11/2013 Elocon apply sparingly 1units 380.23 [facility] 08/05/2012 - 0.1% Ointment to both sides Glenn Ferguson 07/11/2013 affected area ears dispense one tube Topamax 1 1/2- 2 tabs by 60tabs Peg Guerrier, 06/07/2012 - 100mg Tablets mouth every day M.DLovely 07/11/2013 as directed Hydrocortisone Cream apply bid as 30gm [facility] 12/19/2010 - 1% needed Aida FergusonDLovely 07/11/2013 Clotrimazole 5 drops into r 45gm [facility] 11/28/2010 - 1% ear bid Glenn Ferguson 12/05/2010 Solution Cream Hydrocortisone Cream apply bid as 30gm [facility] 10/17/2010 - 1% needed Glenn Ferguson 11/28/2010 Lotrimin AF 5 drops right 1units 380.23 [facility] 10/17/2010 - 1% Solution ear b.i.d. Glenn Ferguson 11/28/2010 Elocon applied to 15g 380.23 [facility] 10/17/2010 - 0.1% Ointment affected area Glenn Ferguson 11/28/2010 b.i.d. Alcohol And Vinegar bid Robin - Aida FergusonDLovely 10/16/2011 Lotrimin Ultra apply to 50units Unknown [...] 12/22/2018 Vital Signs Date Vital Result Comment 01/23/2019 11:22am Height 66 inches 5'6" Weight 334.00 lb BP Systolic 128 mmHg BP Diastolic 80 mmHg Respiratory Rate 18 /min Body Temperature 97.1 F Pain Level 4 BMI (Body Mass Index) 53.9 kg/m2 12/23/2018 9:44am Height 66 inches 5'6" Weight [...] H/L Range Note Comp Metabolic Panel 10/25/2012 [facility] Sodium 142 mmol/L 133-145 101 DATES [place] [id number] [phone] Potassium 4.5 mmol/L 3.5-5.0 Chloride 113 mmol/L [...] Egfr 87.5 >60 1 CBC With 10/25/2012 [facility] White Blood 12.0 10^3/uL High 4.8-10.8 Manual Diff [address] [place], [place] [id number] [phone] Red Blood Count 4.04 10^6/uL 4.0-5.4 Hemoglobin [...] dialysis) Procedures Date Code Description Status 07/12/2018 50820 Polysomnography Sleep Staging 4+ Parameters Completed 03/15/2015 94275 Remove Impacted Cerumen Completed 08/27/2013 48931 Polysomnography Sleep Staging 4+ Parameters Completed 08/12/2012 36116 Remove Impacted Cerumen Completed 02/06/2011 23842 Tympanometry Completed Encounters Type Date Location Provider Dx Diagnosis Office Visit 12/23/2018 [facility] Stiven Tyson, E66.01 Morbid ( severe) 10:30a [facility] N.P. obesity due to excess calories G40.909 Epilepsy, unsp, not intractable, without status epilepticus R51 Headache R53.83 Other fatigue Office Visit 09/13/2018 2:15p Pulmonology And Karmen G47.33 Obstructive sleep Sleep [facility] [place] apnea (adult) Home Health Care Physician (pediatric) Z68.43 Body mass index (BMI) 50-59.9, adult Office Visit 08/29/2018 [facility] Phill Kiran G47.33 Obstructive sleep 3:15p Neurologic Glenn apnea (adult) [facility] (pediatric) G40.909 Epilepsy, unsp, not intractable, without status epilepticus E66.01 Morbid (severe) obesity due to excess calories Office Visit 05/30/2018 [facility] G40.909 Epilepsy, unsp, 10:30a Luis Kiran M.D. not intractable, [facility] Physician without status epilepticus R20.2 Paresthesia of skin G47.30 Sleep apnea, unspecified Office Visit 06/12/2017 Shun Parra G40.909 Epilepsy, unsp, 9:45a Neurologic Glenn Guerrier not intractable, [facility] Physician without status epilepticus R20.2 Paresthesia of skin Office Visit 06/01/2016 Shun Parra G40.909 Epilepsy, unsp, 2:45p Neurologic Glenn Guerrier not intractable, [facility] Physician without status epilepticus G47.30 Sleep apnea, unspecified Office Visit 03/22/2015 3:15p ENT [facility] H60.61 Unspecified C.M.A. AT Glenn Ferguson chronic otitis [place] externa, right ear Office Visit 03/15/2015 3:15p ENT [facility] H61.21 Impacted cerumen, C.M.A. AT Glenn Ferguson right ear [place] H60.8x1 Other otitis externa, right ear Office Visit 03/08/2015 2:45p ENT [facility] 380.23 Otitis Externa C.M.A. AT Glenn Ferguson Other Chronic [place] 380.4 Impacted Cerumen Office Visit 01/28/2015 10:45a Shun Parra 345.90 Epilepsy Unspec Neurologic Glenn Guerrier W/O Intractable [facility] 726.10 Bursae & Tendon Disorders Shoulder Region Unspec Office Visit 07/30/2014 9:45a Shun Parra 345.90 Epilepsy Unspec Luis Guerrier M.D. W/O Intractable [facility] 784.0 Headache 339.10 Tension Type Headache, Unspecified Office Visit 01/29/2014 Shun Parra 345.00 Epilepsy 9:45a Neurologic Glenn Guerrier Nonconvulsive W/O [facility] Intractable Office Visit 08/28/2013 Shun Parra 345.00 Epilepsy 8:45a Luis Guerrier M.D. Nonconvulsive W/O [facility] Intractable Office Visit 07/11/2013 Shun Parra 345.90 Epilepsy Unspec W/O 9:45a Luis Guerrier M.D. Intractable [facility] Physician Office Visit 02/28/2013 Shun Parra 345.90 Epilepsy Unspec W/O 9:45a Neurologic Glenn Guerrier Intractable [facility] Physician Office Visit 10/25/2012 Shun Parra 345.90 Epilepsy Unspec W/O 8:45a Luis Guerrier M.D. Intractable [facility] Office Visit 09/02/2012 ENT [facility] 380.23 Otitis Externa 9:45a C.M.A. AT Glenn Ferguson Other Chronic Willie Office Visit 08/12/2012 ENT [facility] 380.23 Otitis Externa 9:45a C.M.A. AT Glenn Ferguson Other Chronic [place] 380.4 Impacted Cerumen Office Visit 08/05/2012 [facility]NT [facility] [place] 380.23 Otitis Externa 9:30a C.M.A. AT Glenn Ferguson Other Chronic [place] Office Visit 06/21/2012 [facility] 345.90 Epilepsy Unspec 11:15a Neurologic Glenn Guerreir W/O Intractable [facility] Physician Office Visit 04/26/2012 [facility] Par[facility] 345.90 Epilepsy Unspec 8:45a Neurologic Glenn Guerrier W/O Intractable [facility] Phys[facility] Office Visit 10/16/2011 [facility] 380.23 Otitis Externa 9:15a C.M.A. AT Glenn Ferguson Other Chronic [place] 786.59 Pain Chest Other Office Visit 02/13/2011 10:00a ENT [facility] [place] 380.23 Otitis Externa C.M.A. AT Glenn Ferguson Other Chronic [place] Office Visit 02/06/2011 9:00a ENT [facility] [place] 380.23 Otitis Externa C.M.A. AT Glenn Ferguson Other Chronic [place] Office Visit 01/02/2011 9:45a ENT [facility] [place] 380.23 Otitis Externa C.M.A. AT Glenn Ferguson Other Chronic [place] Office Visit 12/19/2010 9:00a ENT [facility] [place] 380.23 Otitis Externa C.M.A. AT Glenn Ferguson Other Chronic [place] Office Visit 12/05/2010 9:00a ENT [facility] [place] 380.23 Otitis Externa C.M.A. AT Glenn Ferguson Other Chronic [place] Office Visit 11/28/2010 9:15a ENT [facility] [place] 380.23 Otitis Externa C.M.A. AT Glenn Ferguson Other Chronic [place] Office Visit 10/17/2010 9:30a ENT [facility] [place] 380.23 Otitis Externa C.M.A. AT Glenn Ferguson Other Chronic [place] Office Visit 10/03/2010 9:00a ENT [facility] [place] 380.23 Otitis Externa C.M.A. AT Glenn Ferguson Other Chronic [place] Office Visit 09/26/2010 9:30a ENT [facility] 380.23 Otitis Externa [place] AT Glenn Ferguson Other Chronic [place] Plan of Treatment Future Appointment(s):02/25/2019 10:45 am - Dawson Jett M.D. at [facility] [place]03/28/2019 11:00 am - Stiven Tyson N.P. at [facility]05/26/2019 3:15 pm - Phill Kiran M.D. at [facility]01/23/2019 - Dawson Jett M.D.S93.402A Sprain of unspecified ligament of left ankle, initial encounterFollow up:3 weeks
[2019-02-20 22:39] LABS: Hematocrit 41 % (35-47); Hemoglobin 13.6 g/dL (12.0-16.0); Mean Corpuscular HGB Conc 33 g/dL (31-36); Mean Corpuscular Hemoglobin 28 pg (27-31); Mean Corpuscular Volume 85 fL (80-97); Mean Platelet Volume 9.4 fL (7.4-10.4); Platelet Count 282 10^3/uL (150-450); Red Blood Count 4.79 10^6 /uL (3.70-4.87); Red Cell Distribution Width 15 % (10-15); White Blood Count 23.4 10^3/uL (3.5-10.8)
[2019-02-20 22:55] LABS: ALT 127 U/L (7-52); Albumin 4.1 g/dL (3.2-5.2); Albumin/Globulin Ratio 1.4 (1-3); Alkaline Phosphatase 92 U/L (34-104); BUN/Creatinine Ratio 30.8 (8-20); Blood Urea Nitrogen 40 mg/dL (6-24); CO2 Carbon Dioxide 22 mmol/L (22-32); Chloride 109 mmol/L (101-111); EGFR African American 52.5 (>60); EGFR Non-African American 43.4 (>60); Globulin 2.9 g/dL (2-4); Glucose 106 mg/dL (70-100); Sodium 141 mmol/L (135-145)
[2019-02-20] MEDS ORDERED: Lidocaine 2% EPI 1:200000 MPF* 10 ML VIAL INJ ONE (22:57)
[2019-02-20 22:58] LABS: Calcium 13.8 mg/dL (8.6-10.3)
[2019-02-20 22:59] LABS: Troponin I 0.05 ng/mL (<0.04)
[2019-02-20] MEDS ORDERED: Lidocaine 2% w/ EPI 1:200,000* 20 ML SDV VIAL INJ ONE (23:00)
[2019-02-20 23:07] LABS: ABS Lymphocytes 1.3 10^3/ul (1.0-4.8); ABS Monocytes 2.2 10^3/ul (0-0.8); ABS Neutrophils 19.9 10^3/ul (1.5-7.7); Lymphocyte % 5.5 %
[2019-02-20 23:18] LABS: Acetaminophen < 15 mcg/mL; Alcohol < 10 mg/dL (<10)
[2019-02-20 23:38] LABS: Anion Gap 10 mmol/L (2-11)
[2019-02-21 00:23] LABS: Potassium Redraw 3.5 mmol/L (3.5-5.0)
[2019-02-21] MEDS ORDERED: NS 0.9% 1000 ML** 2,000 ML IV ONE (00:27)
[2019-02-21] MEDS ORDERED: NS 0.9% 1000 ML** 1,000 ML IV SCH (00:30)
[2019-02-21 00:52] LABS: C Reactive Protein 93.21 mg/L (<8.01)
[2019-02-21 00:53] LABS: Urine Appearance Cloudy; Urine Bacteria 1+ (Absent); Urine Bilirubin Negative (Negative); Urine Blood 3+ (Negative); Urine Color Amber; Urine Glucose Negative (Negative); Urine Ketones 1+ (Negative); Urine Nitrite Positive (Negative); Urine Protein 2+(100 mg/dL) (Negative); Urine Red Blood Cell 2+(6-10/hpf) (Absent); Urine Specific Gravity 1.027 (1.010-1.030); Urine Urobilinogen Positive (Negative); Urine White Blood Cell 2+(11-20/hpf) (Absent)
[2019-02-21 01:11] LABS: Urine Benzodiazepine Screen None Detected (None Detect); Urine Opiates Screen None Detected (None Detect)
[2019-02-21 01:33] LABS: Creatine Kinase 14961 U/L (10-223)
[2019-02-21 01:59] LABS: Erythrocyte Sed Rate 15 mm/Hr (0-29)
--- NOTE | 2019-02-21 03:05 | HP ---
CC: Dr. Yoder; Dr. Kiran * HISTORY AND PHYSICAL: DATE OF ADMISSION: 02/21/19 PRIMARY CARE PROVIDER: Dr. Yoder. NEUROLOGIST: Dr. Kiran. CHIEF COMPLAINT: Altered mental status. HISTORY OF PRESENT ILLNESS: Ms. Polanco is a 48-year-old female who has a history of seizure disorder, obstructive sleep apnea and obesity, who was found at home lying on the floor partially naked by her children. The patient was unable to get up from the floor on her own. She was noted to be quite confused. She was talking about a gentleman named, Flaco Goddard, who she states is an FBI agent. She states that her house has been under surveillance and she did not realize it. She was also told by this gentleman that he could get her into a prestigious dog training school. She states he also made her feel quite bad as he showed her images of her mom's van that had been involved in a crash and told her, her mom had . She was also told that her dog mauled a aircraft electronics technical officer and killed him. According to the patient's family including her mother, none of this appears to be true though the patient's son did find Flaco Goddard's name and number in the patient's phone. The patient is very fearful of providing any information regarding this individual. She is unable to tell me how long she was on the floor for. She did tell me that she had a hard time getting up and she was trying to get up on her elbows and knees and was unable to do so. She does not know if she has been eating or drinking recently. She really cannot provide any other information. She was quite reserved and seems to be holding back thoughts at times. PAST MEDICAL HISTORY: 1. Seizure disorder. 2. Obesity. 3. FRANCISCO. PAST SURGICAL HISTORY: 1. x2. 2. Tonsils/adenoids. MEDICATIONS: 1. Topamax 100 mg p.o. b.i.d. 2. Keppra 1000 mg p.o. b.i.d. ALLERGIES: AUGMENTIN. FAMILY HISTORY: Mom is living. She is 76. She has a history of hypertension. Dad is . Sounds as though he from bacteremia, but also had a history of renal failure from post streptococcal glomerulonephritis. SOCIAL HISTORY: The patient states that she has been a former smoker but then been trying to quit. She does not drink alcohol. 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 She is . She has 3 children. She thinks that her mom to be her healthcare proxy. She had a very difficult time making this decision, however. REVIEW OF SYSTEMS: The patient is not really able to answer any of my questions. Her symptoms over the last couple of days, she states I do not know having fevers or chills or even if she has been eating or drinking. She does admit to left lower quadrant abdominal pain. She was unable to tell me anything more about this, however. PHYSICAL EXAMINATION GENERAL: The patient is a well-developed, morbidly obese middle age female, seen lying flat in the stretcher, in no acute distress. VITAL SIGNS: Blood pressure 145/101, pulse 100, respirations 11, temp 99.5, O2 sat 97% on room air. HEENT: Pupils are equal and round. Extraocular muscles are intact. Oropharynx is clear. Oral mucosa is dry. There is no submandibular, cervical, or supraclavicular adenopathy. PULMONARY: Lungs are clear to auscultation anteriorly and at the lateral bases. CARDIAC: Normal S1, S2. Heart rate is mildly tachycardiac. It is regular. There is no lower extremity edema. ABDOMEN: Bowel sounds are present. Abdomen is soft and nondistended. She is mildly tender to palpation in the left lower quadrant. MUSCULOSKELETAL: The patient is able to move all 4 extremities. Her toes are mildly cyanotic. SKIN: Warm and dry. There are no rashes. She does have yeast infection involving her abdominal folds. The left side being worse than the right. She has abrasions and erythema on her elbows and knees bilaterally. NEURO: Cranial nerves II through XII are grossly intact. Sensation is intact to light touch throughout. Strength appears to be normal throughout. PSYCH: The patient is alert. She is oriented to being in the hospital. She is oriented to being (I started seeing the patient on 02/20/19). She does have what seems to be delusions of her house being under surveillance by the FBI as well as speaking to an FBI agent. DIAGNOSTIC STUDIES/LAB DATA: WBC 23.4, hemoglobin 13.6, hematocrit 41, platelets 282. Sodium 141, potassium 3.5, chloride 109, CO2 of 22, BUN 40, creatinine 1.3, glucose 106, lactic acid 2.6, calcium 13.8. Bilirubin 1.2, AST 417, ALT 127, alk phos 92. Ammonia 45. Troponin 0.05. Albumin is 4.1. Acetaminophen less than 15. Serum alcohol less than 10. CT brain no acute intracranial pathology is appreciated. ASSESSMENT AND PLAN: Ms. Polanco is a 48-year-old female who has a history of seizure disorder, obesity, and obstructive sleep apnea, who presents to the emergency room with weakness and altered mental status. 1. Altered mental status. At this point, my suspicion is the patient's altered mental status is secondary to marked hypercalcemia. The degree of calcium elevation could be leading to psychosis. Her Keppra also could be leading to psychosis. At this point, I am not holding her Keppra as I do not want her to have any seizures. However, discussion with Neurology could be had to discuss whether or not she should be changed to a different antiepileptic. 2. Hypercalcemia. The etiology behind this is not clear. Her calcium is markedly elevated making primary hyperparathyroidism seem slightly less likely though I will start by ordering a intact PTH level. The degree of calcium elevation certainly could be related to an underlying malignancy. The patient did undergo CT scan of the brain, which was negative. If she was having abdominal pain, I will be getting a CT of the abdomen and pelvis and this will also help us identify if there are any abnormalities intraabdominally. The patient will be treated with normal saline 2 L bolus because she appears quite dry, followed by Lasix 20 mg IV after the 2 L are done. She may benefit from having bisphosphonate administration sooner rather than later. I will hold off on ordering Zoledronic acid for now. Consultation with Endocrinology should be made in the morning. If the patient's PTH level is not elevated, 25-OH vitamin D levels and 125 vitamin D levels should be obtained. Malignancy workup also should be undertaken if her PTH is not elevated. She does have mild renal dysfunction with a creatinine and because of this, we will send off an SPEP. 3. Leukocytosis. The patient has a marked leukocytosis of 23.400. Other than the yeast infection in her abdominal skin folds, there are no clear signs of infection. I will be getting a CT of the abdomen and pelvis to evaluate the abdominal pain and in addition, will be obtaining a chest x-ray. I am going to hold off on antibiotic therapy at this point. 4. Lactic acidosis. I suspect the patient's lactic acid level was elevated due to dehydration. She is going to aggressively hydrated for her hypercalcemia and we will followup the lactic acid level at 2:30 a.m. 5. Elevated liver function tests. The patient's AST and ALT are elevated. I do not have any recent labs to compare to. I do question if she may have an elevated CPK and therefore this has been added on. It was unclear how long she was down on the ground for. Additionally, she will be getting the CT scan of the abdomen and pelvis, which may give us a cause for her elevated LFTs. 6. Elevated troponin. The patient denies any chest pain at this point. A question of this could be demand ischemia or perhaps even related to rhabdomyolysis. We will get a follow up troponin at 2:30 a.m. as well as an EKG now as this is yet to be performed. My suspicion is low that the elevated troponin in fact is representing an acute coronary syndrome. 7. Seizure disorder. I am going to continue both Keppra and Topamax for now. As above, however, Keppra can cause psychosis, can also cause elevated LFTs. Discussion with Neurology can be had to determine if this should be changed to something else at least temporarily. 8. obstructive sleep apnea. We will order CPAP for sleep. 9. DVT prophylaxis. According to the Adult Thrombosis Prophylaxis Risk Factor Assessment Guide, the patient has a total risk factor score of 2, making her moderate risk. She will receive Lovenox 40 mg subcutaneous daily starting in the evening of 02/21/19. 10. The patient is a full code. TIME SPENT: Seventy-five minutes was spent admitting this patient. [id number]/[facility] #: [id number] MTDD
[2019-02-21 03:15] LABS: Troponin I 0.05 ng/mL (<0.04)
[2019-02-21] MEDS: Nystatin CREAM* 15 GM TUBE TOPICAL SCH ×4 (03:22→21:13)
[2019-02-21] MEDS ORDERED: Furosemide IV* 10 MG/ML 2 ML VIAL (20 MG) IV ONE (04:00)
[2019-02-21] MEDS: Topiramate TAB(*) 100 MG PO SCH ×2 (07:43→21:12)
[2019-02-21] MEDS: cefTRIAXone(*) 1 GM in NS 0.9% 50 ML* 50 ML IVPB SCH (07:43)
[2019-02-21] MEDS: levETIRAcetam TAB* 500 MG PO SCH ×2 (07:43→21:12)
[2019-02-21 08:48] LABS: ABS Lymphocytes 1.8 10^3/ul (1.0-4.8); ABS Monocytes 1.4 10^3/ul (0-0.8); Eosinophil % 0.1 %; Hematocrit 36 % (35-47); Hemoglobin 11.9 g/dL (12.0-16.0); Lymphocyte % 10.4 %; Mean Corpuscular HGB Conc 33 g/dL (31-36); Mean Corpuscular Hemoglobin 29 pg (27-31); Mean Corpuscular Volume 86 fL (80-97); Mean Platelet Volume 9.2 fL (7.4-10.4); Platelet Count 235 10^3/uL (150-450); Red Blood Count 4.17 10^6 /uL (3.70-4.87); Red Cell Distribution Width 15 % (10-15); White Blood Count 17.2 10^3/uL (3.5-10.8)
[2019-02-21] MEDS ORDERED: levETIRAcetam TAB* 500 MG PO SCH (09:00)
[2019-02-21 09:17] LABS: Calcium 11.3 mg/dL (8.6-10.3); EGFR Non-African American 58.7 (>60); Potassium 3.2 mmol/L (3.5-5.0)
[2019-02-21 09:34] LABS: Folate 9.42 ng/mL (>3.99)
[2019-02-21] MEDS ORDERED: NS 0.45% KCl 20 Meq 1000 ML* 1,000 ML IV SCH (11:00)
[2019-02-21] MEDS ORDERED: Iodixanol* (CONTRAST) 320 MG/ML 100 ML SDV IV ONE (12:02)
[2019-02-21 15:50] LABS: BUN/Creatinine Ratio 30.8 (8-20); Calcium 12.5 mg/dL (8.6-10.3); EGFR African American 79.2 (>60); EGFR Non-African American 65.4 (>60); Phosphorus 2.1 mg/dL (2.5-5.0); Potassium 3.2 mmol/L (3.5-5.0)
--- NOTE | 2019-02-21 16:07 | PN ---
Subjective Date of Service: 02/21/19 Interval History: Talked to patient and her mother this morning for 30 mins. Patient stayed alone at home, was last found normal yesterday morning when a friend/relative called her. Was found to be lying on the ground yesterday with disorientation and delusions. Pt told me she could still hear a man here was talking to her and told her he was making lists of phones etc. She denied she saw him. She could tell me she was in ED yesterday, but couldn't recall events yesterday. She felt weak all over, especially legs. She also complained of back and left hip pain. Objective Active Medications: Enoxaparin Sodium (Lovenox(*)) 40 mg SUBCUT Q24H [facility] Ceftriaxone Sodium 1 gm/ (Sodium Chloride) 50 mls @ 100 mls/hr IVPB Q24H [facility] Last Admin: 02/21/19 07:43 Dose: 100 mls/hr Potassium Chloride/Sodium Chloride (Ns 0.45% Kcl 20 Meq 1000 Ml*) 1,000 mls @ 150 mls/hr IV PER RATE [facility] Last Admin: 02/21/19 15:25 Dose: 150 mls/hr Levetiracetam (Keppra Tab*) 1,000 mg PO BID [facility] Last Admin: 02/21/19 07:43 Dose: 1,000 mg Nystatin (Nystatin Cream*) 1 applic TOPICAL TID [facility] Last Admin: 02/21/19 07:56 Dose: 1 applic Ondansetron HCl (Zofran Inj*) 4 mg IV Q4H [facility] Topiramate (Topamax(*)) 100 mg PO BID [facility] Last Admin: 02/21/19 07:43 Dose: 100 mg Vital Signs - 8 hr 02/21/19 11:15 Temperature 98.0 F Pulse Rate 87 Respiratory 20 Rate Blood Pressure 136/77 (mmHg) O2 Sat by Pulse 99 Oximetry Oxygen Devices in Use Now: None Exam: General - Lethargic, slow speech and response Eyes - PERRLA, EOM intact HEENT- no abnormality Lymph Nodes - No lymphadenopathy Cardiovascular - S1S2, unable to auscultate clearly. Lungs - Clear to auscltation, no use of acessory muscles, no crackles or wheezes. Skin - No rashes, skin warm and dry, no erythematous areas Abdomen - Normal bowel sounds, abdomen soft and nontender Extremeties - No edema, cyanosis or clubbing Musculo Skeletal - tenderness over lumbar spine probably L2-3 area. ROM normal Neurological Alert and oriented x 3, CN 2-12 grossly intact. Strength 3/5 over LL, 4/5 over UL reflexes 1+ over 4 limbs Result Diagrams: 02/21/19 08:23 02/21/19 15:24 Assess/Plan/Problems-Billing Assessment: 48 y/o female with history of seizure disorder, FRANCISCO, morbid obesity, presented as disorientation and fall, found to have hypercalcemia, elevated liver enzymes , rhabdomyolysis. Diagnosis currently is unclear. Her hypercalcemia with midly raised PTH could indicate primary hyperparathyroidism, but malignancy such as MM is a concern due to elevated liver enzymes. - Patient Problems (1) Hypercalcemia Current Visit: Yes Status: Acute Code(s): E83.52 - HYPERCALCEMIA SNOMED Code(s): 52604488 Comment: - iv hydration and iv lasix was given - consultted sports administrator Dr. Ugalde, iv bisphosphonate is not indicated if calcium<11.5 - continue iv hydration, repeat every 4 hours (2) Liver enzyme elevation Current Visit: Yes Status: Acute Code(s): R74.8 - ABNORMAL LEVELS OF OTHER SERUM ENZYMES SNOMED Code(s): 984045954 Comment: AST/ALT >2, alcoholic likely CT Abd/pelvis today (3) Rhabdomyolysis Current Visit: Yes Status: Acute Code(s): M62.82 - RHABDOMYOLYSIS SNOMED Code(s): 148658381 Comment: continue iv hydration trace ck level (4) DARRYL (acute kidney injury) Current Visit: Yes Status: Acute Code(s): N17.9 - ACUTE KIDNEY FAILURE, UNSPECIFIED SNOMED Code(s): 61454136 (5) Delusion Current Visit: Yes Status: Acute Code(s): F22 - DELUSIONAL DISORDERS SNOMED Code(s): 5370718 Comment: with active auditory hallucination (6) Full code status Current Visit: Yes Status: Acute Code(s): Z78.9 - OTHER SPECIFIED HEALTH STATUS SNOMED Code(s): 973402310 (7) DVT (deep venous thrombosis) Current Visit: Yes Status: Acute Code(s): I82.409 - ACUTE EMBOLISM AND THOMBOS UNSP DEEP VN UNSP LOWER EXTREMITY SNOMED Code(s): 173709954 Status and Disposition: still inpatient medicine Attestation Documenting Resident: Maggie Fairbanks Supervising Physician: Leobardo Lake Attestation: This service has been performed in part by a resident under the direction of a teaching physician.I, Leobardo Lake, performed the service, or was physically present during the critical, or arnold portions of the service, furnished by the resident. I participated in the management of the patient.
[2019-02-21] MEDS ORDERED: Potassium Chlor TAB* 20 MEQ TAB.ER PO ONE ×2 (16:37→23:35)
[2019-02-21 16:43] LABS: Urine Potassium Concentration 21.9 mmol/L
[2019-02-21] MEDS: Ondansetron INJ* 2 MG/ML VIAL IV SCH ×3 (16:44→21:13)
[2019-02-21] MEDS: NS 0.9% w/ 20 Meq KCL 1000 ML* 1,000 ML IV SCH (18:13)
[2019-02-21] MEDS: Calcitonin (Salmon) INJ* 200 UNITS/ML 2 ML VIAL SUBCUT SCH (18:52)
[2019-02-21] MEDS: Enoxaparin(*) 40 MG/0.4 ML SYR SUBCUT SCH (21:13)
[2019-02-21 21:19] LABS: BUN/Creatinine Ratio 29.4 (8-20); Calcium 11.5 mg/dL (8.6-10.3); EGFR African American 85.7 (>60); EGFR Non-African American 70.8 (>60); Potassium 3.3 mmol/L (3.5-5.0)
[2019-02-21 23:35] LABS: Magnesium 1.7 mg/dL (1.9-2.7)
[2019-02-21] MEDS ORDERED: Magnesium Sulfate 2 GM IV* 2 GM/50 ML BAG IVPB ONE (23:36)
[2019-02-22] MEDS: NS 0.9% w/ 20 Meq KCL 1000 ML* 1,000 ML IV SCH (02:56)
[2019-02-22] MEDS: Ondansetron INJ* 2 MG/ML VIAL IV SCH ×6 (02:57→21:18)
[2019-02-22 05:17] LABS: Hematocrit 37 % (35-47); Hemoglobin 12.4 g/dL (12.0-16.0); Mean Corpuscular HGB Conc 33 g/dL (31-36); Mean Corpuscular Hemoglobin 29 pg (27-31); Mean Corpuscular Volume 87 fL (80-97); Mean Platelet Volume 9.3 fL (7.4-10.4); Platelet Count 232 10^3/uL (150-450); Red Blood Count 4.31 10^6 /uL (3.70-4.87); Red Cell Distribution Width 15 % (10-15); White Blood Count 13.4 10^3/uL (3.5-10.8)
[2019-02-22] MEDS: Calcitonin (Salmon) INJ* 200 UNITS/ML 2 ML VIAL SUBCUT SCH ×2 (05:18→16:30)
[2019-02-22 05:33] LABS: Albumin/Globulin Ratio 1.2 (1-3); BUN/Creatinine Ratio 25.7 (8-20); Calcium 10.1 mg/dL (8.6-10.3); EGFR African American 100.5 (>60); EGFR Non-African American 83.1 (>60); Globulin 2.5 g/dL (2-4); Indirect Bilirubin 0.2 mg/dL (0.3-1.0); Phosphorus 1.8 mg/dL (2.5-5.0); Potassium 3.8 mmol/L (3.5-5.0); Total Bilirubin 0.3 mg/dL (0.2-1.0); Total Protein 5.5 g/dL (6.4-8.9)
[2019-02-22] MEDS: Nystatin CREAM* 15 GM TUBE TOPICAL SCH ×3 (08:31→21:18)
[2019-02-22] MEDS: levETIRAcetam TAB* 500 MG PO SCH ×2 (08:31→20:57)
[2019-02-22] MEDS: cefTRIAXone(*) 1 GM in NS 0.9% 50 ML* 50 ML IVPB SCH (08:31)
[2019-02-22] MEDS: Topiramate TAB(*) 100 MG PO SCH ×2 (08:31→20:58)
--- NOTE | 2019-02-22 16:11 | PN ---
Subjective Date of Service: 02/22/19 Interval History: Patient feeling quite a bit better. Tolerating food. Has many questions about calcium, parathyroid, cancer workup. She has walked to bathroom 2x w/ walker. Denies dysuria/frequency prior to admission. Reports toes tingling, RT 1/2 of abdomen numb. Family History: Unchanged from Admission Social History: Unchanged from Admission Past Medical History: Unchanged from Admission Objective Active Medications: Calcitonin [place] (Miacalcin Inj*) 400 units SUBCUT Q12H [facility] Enoxaparin Sodium (Lovenox(*)) 40 mg SUBCUT Q24H [facility] Last Admin: 02/21/19 21:13 Dose: 40 mg Ceftriaxone Sodium 1 gm/ (Sodium Chloride) 50 mls @ 100 mls/hr IVPB Q24H [facility] Last Admin: 02/22/19 08:31 Dose: 100 mls/hr Potassium Chloride/Sodium Chloride (Ns 0.9% W/ 20 Meq Kcl 1000 Ml*) 1,000 mls @ 125 mls/hr IV PER RATE [facility] Stop: 02/23/19 01:59 Last Admin: 02/22/19 02:56 Dose: 125 mls/hr Levetiracetam (Keppra Tab*) 1,000 mg PO BID [facility] Last Admin: 02/22/19 08:31 Dose: 1,000 mg Nystatin (Nystatin Cream*) 1 applic TOPICAL TID [facility] Last Admin: 02/22/19 08:31 Dose: 1 applic Ondansetron HCl (Zofran Inj*) 4 mg IV Q4H [facility] Last Admin: 02/22/19 12:04 Dose: 4 mg Topiramate (Topamax(*)) 100 mg PO BID [facility] Last Admin: 02/22/19 08:31 Dose: 100 mg Vital Signs - 8 hr 02/22/19 02/22/19 08:11 11:15 Temperature 36.3 C 36.8 C Pulse Rate 74 77 Respiratory 20 20 Rate Blood Pressure 134/64 123/63 (mmHg) O2 Sat by Pulse 96 96 Oximetry Oxygen Devices in Use Now: None Appearance: alert, no distress Ears/Nose/Mouth/Throat: Clear Oropharnyx Neck: No Thyroid Enlargement, Masses Respiratory: Clear to Auscultation, Clear to Percussion Cardiovascular: NL Sounds; No Murmurs; No JVD, RRR Abdominal: NL Sounds; No Tenderness; No Distention Neurological: Alert and Oriented x 3 Lines/Tubes/Other Access: Clean, Dry and Intact Peripheral IV Nutrition: Taking PO's Result Diagrams: 02/22/19 04:58 02/22/19 04:58 Additional Lab and Data: Laboratory Tests 02/21/19 02/21/19 02/22/19 20:57 20:57 04:58 Calcium 11.5 H 10.1 Ionized Calcium 1.53 H Phosphorus 1.8 L Magnesium 1.7 L 2.0 AST 298 H ALT 108 H Total Creatine Kinase 4691 H Microbiology and Other Data: Microbiology 02/21/19 00:32 Urine Culture - Preliminary Urine Escherichia Coli Assess/Plan/Problems-Billing Assessment: 48 y/o female with history of seizure disorder, FRANCISCO, morbid obesity, presented as disorientation and fall, found to have hypercalcemia, elevated liver enzymes , rhabdomyolysis. Diagnosis currently is unclear. Her hypercalcemia with mildy raised PTH could indicate primary hyperparathyroidism, but malignancy such as MM is a concern due to elevated liver enzymes. - Patient Problems (1) Hypercalcemia Current Visit: Yes Status: Acute Priority: High Code(s): E83.52 - HYPERCALCEMIA SNOMED Code(s): 17476363 Comment: - Improved w/ IV NS, calcitonin SC, will decrease dose - consulted armature coil winder Dr. Ugalde by phone, iv bisphosphonate is not indicated if calcium<11.5, he will see patient next week - Dr Ugalde may arrange Dr. Bee to perform parathyroid surgery - Stop IV hydration and monitor (2) Rhabdomyolysis Current Visit: Yes Status: Acute Priority: Medium Code(s): M62.82 - RHABDOMYOLYSIS SNOMED Code(s): 781052972 Comment: -CPK trending down w/ IV hydration -No DARRYL as a result (3) DVT prophylaxis Current Visit: Yes Status: Acute Priority: Low Code(s): Z29.9 - ENCOUNTER FOR PROPHYLACTIC MEASURES, UNSPECIFIED SNOMED Code(s): 793868407 Comment: SC lovenox (4) Mobility poor Current Visit: Yes Status: Acute Priority: Medium Code(s): Z74.09 - OTHER REDUCED MOBILITY SNOMED Code(s): 765744013 Comment: -Will remove lozada catheter and check bladder scan -Physical therapy to assess Status and Disposition: inpatient medicine
[2019-02-22] MEDS: Potassium Acid Phosphate TAB* 500 MG PO SCH ×2 (17:51→20:57)
[2019-02-22] MEDS: Enoxaparin(*) 40 MG/0.4 ML SYR SUBCUT SCH (20:58)
[2019-02-22 22:22] LABS: Urine Creatinine Concentration 59.98 mg/dL
[2019-02-22] MEDS ORDERED: traMADol TAB* 50 MG PO ONE (23:50)
[2019-02-23] MEDS: Ondansetron INJ* 2 MG/ML VIAL IV SCH ×6 (02:23→20:37)
[2019-02-23 05:57] LABS: ABS Eosinophils 0.1 10^3/ul (0-0.6); ABS Lymphocytes 1.9 10^3/ul (1.0-4.8); ABS Monocytes 0.8 10^3/ul (0-0.8); ABS Neutrophils 8.1 10^3/ul (1.5-7.7); Eosinophil % 1.2 %; Hematocrit 38 % (35-47); Hemoglobin 12.4 g/dL (12.0-16.0); Lymphocyte % 17.1 %; Mean Corpuscular HGB Conc 33 g/dL (31-36); Mean Corpuscular Hemoglobin 28 pg (27-31); Mean Corpuscular Volume 86 fL (80-97); Mean Platelet Volume 8.9 fL (7.4-10.4); Nucleated Red Blood Cells % 0.1; Platelet Count 242 10^3/uL (150-450); Red Cell Distribution Width 15 % (10-15)
[2019-02-23 06:13] LABS: Albumin 3.3 g/dL (3.2-5.2); Albumin/Globulin Ratio 1.3 (1-3); BUN/Creatinine Ratio 13.9 (8-20); Calcium 10.9 mg/dL (8.6-10.3); EGFR African American 103.7 (>60); EGFR Non-African American 85.7 (>60); Globulin 2.5 g/dL (2-4); Potassium 4.1 mmol/L (3.5-5.0); Total Bilirubin 0.3 mg/dL (0.2-1.0); Total Protein 5.8 g/dL (6.4-8.9)
[2019-02-23] MEDS: Calcitonin (Salmon) INJ* 200 UNITS/ML 2 ML VIAL SUBCUT SCH ×2 (06:43→18:08)
--- NOTE | 2019-02-23 06:58 | PN ---
Subjective Date of Service: 02/23/19 Interval History: No events overnight. calcium 10.9 I/O 4545/3770 Objective Active Medications: Calcitonin [place] (Miacalcin Inj*) 400 units SUBCUT Q12H [facility] Last Admin: 02/23/19 06:43 Dose: 400 units Enoxaparin Sodium (Lovenox(*)) 40 mg SUBCUT Q24H [facility] Last Admin: 02/22/19 20:58 Dose: 40 mg Ceftriaxone Sodium 1 gm/ (Sodium Chloride) 50 mls @ 100 mls/hr IVPB Q24H [facility] Last Admin: 02/22/19 08:31 Dose: 100 mls/hr Levetiracetam (Keppra Tab*) 1,000 mg PO BID [facility] Last Admin: 02/22/19 20:57 Dose: 1,000 mg Nystatin (Nystatin Cream*) 1 applic TOPICAL TID [facility] Last Admin: 02/22/19 21:18 Dose: 1 applic Ondansetron HCl (Zofran Inj*) 4 mg IV Q4H [facility] Last Admin: 02/23/19 06:47 Dose: 4 mg Potassium Phosphate (K Phos Original Tab*) 500 mg PO TID [facility] Last Admin: 02/22/19 20:57 Dose: 500 mg Topiramate (Topamax(*)) 100 mg PO BID [facility] Last Admin: 02/22/19 20:58 Dose: 100 mg Vital Signs - 8 hr 02/22/19 02/23/19 02/23/19 23:40 00:36 02:23 Temperature 98.1 F Pulse Rate 94 Respiratory 18 18 16 Rate Blood Pressure 141/89 (mmHg) O2 Sat by Pulse 98 Oximetry 02/23/19 03:40 Temperature 98.3 F Pulse Rate 85 Respiratory 20 Rate Blood Pressure 107/60 (mmHg) O2 Sat by Pulse 94 Oximetry Oxygen Devices in Use Now: None Exam: General - NAD, walking in the room, more energetic Eyes - PERRLA, EOM intact HEENT- no abnormality Cardiovascular - RRR no m/r/g, no JVD, no carotid bruits Lungs - Clear to auscltation, no use of acessory muscles, no crackles or wheezes. Skin - No rashes, skin warm and dry, no erythematous areas Abdomen - Normal bowel sounds, abdomen soft and nontender Extremeties - No edema, cyanosis or clubbing Musculo Skeletal - 5/5 strength, normal range of motion, no swollen or erythematous joints. Neurological Alert and oriented x 3, CN 2-12 grossly intact. Psychiatry- no hallucination Result Diagrams: 02/23/19 05:38 02/23/19 05:38 Additional Lab and Data: Laboratory Tests 02/21/19 02/21/19 02/22/19 20:57 20:57 04:58 Calcium 11.5 H 10.1 Ionized Calcium 1.53 H Phosphorus 1.8 L Magnesium 1.7 L 2.0 AST 298 H ALT 108 H Total Creatine Kinase 4691 H Microbiology and Other Data: Microbiology 02/21/19 00:32 Urine Culture - Preliminary Urine Escherichia Coli Assess/Plan/Problems-Billing Assessment: 48 y/o female with history of seizure disorder, FRANCISCO, morbid obesity, presented as disorientation and fall, found to have hypercalcemia, elevated liver enzymes , rhabdomyolysis. Diagnosis currently is unclear. Her hypercalcemia with mildy raised PTH could indicate primary hyperparathyroidism, but malignancy such as MM is a concern. Her stay complicated with asymptomatic E.coli urine tract infection which could also contribute to her mental status change. - Patient Problems (1) Hypercalcemia Current Visit: Yes Status: Acute Priority: High Code(s): E83.52 - HYPERCALCEMIA SNOMED Code(s): 18935932 Comment: - Improved w/ IV NS, calcitonin SC, will decrease dose - consulted research assoc Dr. Ugalde by phone, iv bisphosphonate is not indicated if calcium<11.5, he will see patient next week - Dr Ugalde may arrange Dr. Bee to perform parathyroid surgery - Stop IV hydration and monitor - nuclear parathyroid scan tomorrow (2) Liver enzyme elevation Current Visit: Yes Status: Acute Code(s): R74.8 - ABNORMAL LEVELS OF OTHER SERUM ENZYMES SNOMED Code(s): 870686490 Comment: AST/ALT >2, alcoholic likely CTAP normal (3) Rhabdomyolysis Current Visit: Yes Status: Acute Priority: Medium Code(s): M62.82 - RHABDOMYOLYSIS SNOMED Code(s): 592509263 Comment: -CPK trending down w/ IV hydration -No DARRYL as a result (4) Delusion Current Visit: Yes Status: Acute Code(s): F22 - DELUSIONAL DISORDERS SNOMED Code(s): 6929936 Comment: with active auditory hallucination (5) UTI (urinary tract infection) Current Visit: Yes Status: Acute Comment: urine c/s E.coli, sensitivity pending continue iv ceftriaxone, d3 (6) Full code status Current Visit: Yes Status: Acute Code(s): Z78.9 - OTHER SPECIFIED HEALTH STATUS SNOMED Code(s): 460798591 (7) DVT (deep venous thrombosis) Current Visit: Yes Status: Acute Code(s): I82.409 - ACUTE EMBOLISM AND THOMBOS UNSP DEEP VN UNSP LOWER EXTREMITY SNOMED Code(s): 391402873 Comment: sq lovenox Status and Disposition: inpatient medicine Attestation Documenting Resident: Maggie Fairbanks Supervising Physician: Leobardo Lake Attending/Supervising Physician Comment: Delusions: resolved, likely due to high Ca. Attestation: This service has been performed in part by a resident under the direction of a teaching physician.I, Leobardo Lake, performed the service, or was physically present during the critical, or arnold portions of the service, furnished by the resident. I participated in the management of the patient.
[2019-02-23] MEDS: Nystatin CREAM* 15 GM TUBE TOPICAL SCH ×2 (09:00→14:51)
[2019-02-23] MEDS: levETIRAcetam TAB* 500 MG PO SCH ×2 (09:10→20:37)
[2019-02-23] MEDS: cefTRIAXone(*) 1 GM in NS 0.9% 50 ML* 50 ML IVPB SCH (09:10)
[2019-02-23] MEDS: Topiramate TAB(*) 100 MG PO SCH ×2 (09:10→20:37)
[2019-02-23] MEDS: Potassium Acid Phosphate TAB* 500 MG PO SCH ×2 (09:10→14:51)
[2019-02-23] MEDS: Enoxaparin(*) 40 MG/0.4 ML SYR SUBCUT SCH (20:37)
[2019-02-23] MEDS ORDERED: Morphine INJ* 2 MG/ML 1 ML SYRINGE (TWO MG - NEW SYRINGE VERSION) IV ONE (21:28)
[2019-02-23] MEDS ORDERED: Senna TAB 8.6 mg* TAB PO PRN (21:29)
[2019-02-23] MEDS ORDERED: Magnesium Hydroxide LIQ* 30 ML UDC PO SCH (22:00)
[2019-02-23] MEDS: Docusate CAP* 100 MG PO SCH (22:27)
[2019-02-24] MEDS: Ondansetron INJ* 2 MG/ML VIAL IV SCH ×6 (02:27→21:17)
[2019-02-24] MEDS: Calcitonin (Salmon) INJ* 200 UNITS/ML 2 ML VIAL SUBCUT SCH ×2 (05:37→18:10)
[2019-02-24 06:01] LABS: BUN/Creatinine Ratio 13.1 (8-20); Calcium 11.3 mg/dL (8.6-10.3); EGFR African American 86.8 (>60); EGFR Non-African American 71.8 (>60); Phosphorus 2.7 mg/dL (2.5-5.0); Potassium 4.1 mmol/L (3.5-5.0)
[2019-02-24 06:17] LABS: TSH (Thyroid Stimulating Horm) 3.16 mcIU/mL (0.34-5.60)
[2019-02-24] MEDS ORDERED: NS 0.9% 1000 ML** 1,000 ML IV SCH ×2 (07:15→13:00)
[2019-02-24] MEDS: cefTRIAXone(*) 1 GM in NS 0.9% 50 ML* 50 ML IVPB SCH (07:42)
[2019-02-24] MEDS: Docusate CAP* 100 MG PO SCH ×2 (07:49→20:53)
[2019-02-24] MEDS: Topiramate TAB(*) 100 MG PO SCH ×2 (07:49→20:54)
[2019-02-24] MEDS: levETIRAcetam TAB* 500 MG PO SCH ×2 (07:49→20:53)
[2019-02-24] MEDS: Polyethylene Glycol 3350* 17 GM PACKET PO PRN (08:09)
--- NOTE | 2019-02-24 13:07 | PN ---
Subjective Date of Service: 02/24/19 Interval History: Patient felt improvement in nausea, last vomit was last night. Poor appetite and thirsty unchanged. Still had neck pain when looking up, no pain when looking down. Numbness on right abdomen and bilateral foot stays the same. Objective Active Medications: Calcitonin [place] (Miacalcin Inj*) 400 units SUBCUT Q12H [facility] Last Admin: 02/24/19 05:37 Dose: 400 units Docusate Sodium (Colace Cap*) 100 mg PO BID [facility] Last Admin: 02/24/19 07:49 Dose: 100 mg Enoxaparin Sodium (Lovenox(*)) 40 mg SUBCUT Q24H [facility] Last Admin: 02/23/19 20:37 Dose: 40 mg Ceftriaxone Sodium 1 gm/ (Sodium Chloride) 50 mls @ 100 mls/hr IVPB Q24H [facility] Last Admin: 02/24/19 07:42 Dose: 100 mls/hr Sodium Chloride (Ns 0.9% 1000 Ml) 1,000 mls @ 75 mls/hr IV PER RATE [facility] Last Admin: 02/24/19 07:42 Dose: 75 mls/hr Sodium Chloride (Ns 0.9% 1000 Ml) 1,000 mls @ 75 mls/hr IV PER RATE [facility] Levetiracetam (Keppra Tab*) 1,000 mg PO BID [facility] Last Admin: 02/24/19 07:49 Dose: 1,000 mg Magnesium Hydroxide (Milk Of Magnesia Liq*) 30 ml PO BID PRN PRN Reason: CONSTIPATION Ondansetron HCl (Zofran Inj*) 4 mg IV Q4H [facility] Last Admin: 02/24/19 10:41 Dose: 4 mg Polyethylene Glycol/Electrolytes (Miralax*) 17 gm PO DAILY PRN PRN Reason: CONSTIPATION Last Admin: 02/24/19 08:09 Dose: 17 gm Senna (Senokot 8.6 Mg Tab*) 1 tab PO BEDTIME PRN PRN Reason: CONSTIPATION Topiramate (Topamax(*)) 100 mg PO BID [facility] Last Admin: 02/24/19 07:49 Dose: 100 mg Vital Signs - 8 hr 02/24/19 02/24/19 02/24/19 07:15 07:57 11:15 Temperature 98.5 F Pulse Rate 76 86 Respiratory 24 18 23 Rate Blood Pressure 122/65 144/88 (mmHg) O2 Sat by Pulse 97 98 Oximetry Oxygen Devices in Use Now: None Exam: General - NAD, more energetic Eyes - PERRLA, EOM intact HEENT- no abnormality Cardiovascular - RRR no m/r/g, no JVD, no carotid bruits Lungs - Clear to auscltation, no use of acessory muscles, no crackles or wheezes. Skin - No rashes, skin warm and dry, no erythematous areas Abdomen - Normal bowel sounds, abdomen soft and nontender Extremeties - No edema, cyanosis or clubbing Musculo Skeletal - 5/5 strength, normal range of motion, no swollen or erythematous joints. Neurological Alert and oriented x 3, CN 2-12 grossly intact. Psychiatry- no hallucination, mood is good Result Diagrams: 02/23/19 05:38 02/24/19 05:16 Additional Lab and Data: Laboratory Tests 02/21/19 02/21/19 02/22/19 20:57 20:57 04:58 Calcium 11.5 H 10.1 Ionized Calcium 1.53 H Phosphorus 1.8 L Magnesium 1.7 L 2.0 AST 298 H ALT 108 H Total Creatine Kinase 4691 H Microbiology and Other Data: Microbiology 02/21/19 00:32 Urine Culture - Preliminary Urine Escherichia Coli Assess/Plan/Problems-Billing Assessment: 48 y/o female with history of seizure disorder, FRANCISCO, morbid obesity, presented as disorientation and fall, found to have hypercalcemia, elevated liver enzymes , rhabdomyolysis. Diagnosis currently is unclear. Her hypercalcemia with mildy raised PTH could indicate primary hyperparathyroidism, but malignancy such as MM is also a concern. Her stay complicated with asymptomatic E.coli urine tract infection which could also contribute to her mental status change. - Patient Problems (1) Hypercalcemia Current Visit: Yes Status: Acute Priority: High Code(s): E83.52 - HYPERCALCEMIA SNOMED Code(s): 57694896 Comment: - Improved w/ IV NS, calcitonin SC - Consulted envelope folding machine adjuster Dr. Ugalde, iv bisphosphonate is not indicated if calcium<11.5, - Dr Ugalde may arrange Dr. Bee to perform parathyroid surgery - Stop IV hydration and monitor - nuclear parathyroid scan tomorrow (2) Liver enzyme elevation Current Visit: Yes Status: Acute Code(s): R74.8 - ABNORMAL LEVELS OF OTHER SERUM ENZYMES SNOMED Code(s): 220452576 Comment: possibly due to rhabdomyolysis CTAP normal (3) Rhabdomyolysis Current Visit: Yes Status: Acute Priority: Medium Code(s): M62.82 - RHABDOMYOLYSIS SNOMED Code(s): 273195176 Comment: -CPK trending down w/ IV hydration -No DARRYL as a result (4) Delusion Current Visit: Yes Status: Acute Code(s): F22 - DELUSIONAL DISORDERS SNOMED Code(s): 1987627 Comment: presented with active auditory hallucination, paranoon on initial admission largely resolved now (5) UTI (urinary tract infection) Current Visit: Yes Status: Acute Comment: urine c/s E.coli, sensitivity pending off ceftriaxone, oral augmentin for another 3 days (6) DVT (deep venous thrombosis) Current Visit: Yes Status: Acute Code(s): I82.409 - ACUTE EMBOLISM AND THOMBOS UNSP DEEP VN UNSP LOWER EXTREMITY SNOMED Code(s): 986775665 Comment: sq lovenox (7) Full code status Current Visit: Yes Status: Acute Code(s): Z78.9 - OTHER SPECIFIED HEALTH STATUS SNOMED Code(s): 028475423 Status and Disposition: inpatient medicine Attestation Documenting Resident: Maggie Fairbanks Supervising Physician: Dawson Elam Attending/Supervising Physician Comment: Agree with plan as outlined by Dr. Fairbanks's note here unless indicated. 48F found with acute delusional disorder in setting of hypercalcemia, rhabdomyolysis and UTI. Suspect UTI as inciting event leading to duration down and rhabdomyolysis. Mental status now baseline s/p abx and hydration. Possible hyperPTH leading to hypercalcemia although presenting calcium higher than would be expected, possible dehydration in setting of UTI and rhabdo contributing to elevated calcium. Check calcium and liver enzymes again tomorrow Total CK now almost completely resolved. Attestation: This service has been performed in part by a resident under the direction of a teaching physician.I, Dawson Elam, performed the service, or was physically present during the critical, or arnold portions of the service, furnished by the resident. I participated in the management of the patient.
[2019-02-24] MEDS: Enoxaparin(*) 40 MG/0.4 ML SYR SUBCUT SCH (20:55)
[2019-02-24] MEDS ORDERED: Amoxicillin/Clavulanate TAB* 500 MG PO SCH (21:00)
[2019-02-24] MEDS: Cefdinir cap* 300 MG CAP PO SCH (21:06)
[2019-02-25] MEDS: Ondansetron INJ* 2 MG/ML VIAL IV SCH ×6 (01:33→23:40)
[2019-02-25 05:29] LABS: ABS Basophils 0.1 10^3/ul (0-0.2); ABS Eosinophils 0.2 10^3/ul (0-0.6); ABS Lymphocytes 1.9 10^3/ul (1.0-4.8); ABS Monocytes 0.9 10^3/ul (0-0.8); ABS Neutrophils 6.6 10^3/ul (1.5-7.7); Eosinophil % 2.3 %; Hematocrit 40 % (35-47); Hemoglobin 12.9 g/dL (12.0-16.0); Lymphocyte % 19.2 %; Mean Corpuscular HGB Conc 33 g/dL (31-36); Mean Corpuscular Hemoglobin 28 pg (27-31); Mean Corpuscular Volume 87 fL (80-97); Mean Platelet Volume 8.5 fL (7.4-10.4); Platelet Count 282 10^3/uL (150-450); Red Blood Count 4.56 10^6 /uL (3.70-4.87); Red Cell Distribution Width 15 % (10-15); White Blood Count 9.7 10^3/uL (3.5-10.8)
[2019-02-25 05:46] LABS: BUN/Creatinine Ratio 13.1 (8-20); Blood Urea Nitrogen 11 mg/dL (6-24); CO2 Carbon Dioxide 27 mmol/L (22-32); Calcium 11.1 mg/dL (8.6-10.3); Chloride 111 mmol/L (101-111); EGFR African American 86.8 (>60); EGFR Non-African American 71.8 (>60); Glucose 115 mg/dL (70-100); Phosphorus 2.5 mg/dL (2.5-5.0); Potassium 3.8 mmol/L (3.5-5.0); Sodium 138 mmol/L (135-145)
[2019-02-25] MEDS: Calcitonin (Salmon) INJ* 200 UNITS/ML 2 ML VIAL SUBCUT SCH ×2 (06:15→17:26)
--- NOTE | 2019-02-25 06:45 | PN ---
Hospitalist Progress Note Date of Service: 02/24/19 Called about patients allergy to Augmentin and being placed on Augmentin. Antibiotic switched to Cefdinir.
[2019-02-25 11:00] LABS: Kappa Free Light Chain 1.97 mg/dL; Lambda Free Light Chain 1.38 mg/dL
[2019-02-25] MEDS: Cefdinir cap* 300 MG CAP PO SCH ×2 (11:16→22:31)
[2019-02-25] MEDS: Topiramate TAB(*) 100 MG PO SCH ×2 (11:17→22:32)
[2019-02-25] MEDS: levETIRAcetam TAB* 500 MG PO SCH ×2 (11:17→22:32)
[2019-02-25] MEDS: Docusate CAP* 100 MG PO SCH ×2 (11:18→22:32)
[2019-02-25 12:53] LABS: Urine Kappa Total Light Chain 3.25 mg/dL (<0.9000); Urine Kappa/Lambda Light Chain 3.25
--- NOTE | 2019-02-25 13:47 | PN ---
Subjective Date of Service: 02/25/19 Interval History: Patient was less nauseous today, didn't want to take breakfast. feeling stronger in terms of muscle strengh. She still complained of lateral neck pain, which is status quo from yesterday. She also point pain on right back paraspinal muscle, also point a lump there which is likely fat necrosis. Objective Active Medications: Calcitonin [place] (Miacalcin Inj*) [address] [facility] Last Admin: 02/25/19 06:15 Dose: Not Given Cefdinir (Cefdinir Cap*) [address] [facility] Stop: 02/27/19 09:01 Last Admin: 02/25/19 11:16 Dose: 300 mg Docusate Sodium (Colace Cap*) [address] [facility] Last Admin: 02/25/19 11:18 Dose: 100 mg Enoxaparin Sodium (Lovenox(*)) [address] [facility] Last Admin: 02/24/19 20:55 Dose: 40 mg Levetiracetam (Keppra Tab*) 1,[address] [facility] Last Admin: 02/25/19 11:17 Dose: 1,000 mg Magnesium Hydroxide (Milk Of Magnkrupa Liq*) 30 ml PO BID PRN PRN Reason: CONSTIPATION Ondansetron HCl (Zofran Inj*) [address] [facility] Last Admin: 02/25/19 11:18 Dose: 4 mg Polyethylene Glycol/Electrolytes (Miralax*) 17 gm PO DAILY PRN PRN Reason: CONSTIPATION Last Admin: 02/24/19 08:09 Dose: 17 gm Senna (Senokot 8.6 Mg Tab*) 1 tab PO BEDTIME PRN PRN Reason: CONSTIPATION Topiramate (Topamax(*)) [address] [facility] Last Admin: 02/25/19 11:17 Dose: 100 mg Vital Signs - 8 hr 02/25/19 02/25/19 07:15 08:00 Temperature 97.6 F Pulse Rate 92 Respiratory 18 18 Rate Blood Pressure 121/80 (mmHg) O2 Sat by Pulse 93 Oximetry Oxygen Devices in Use Now: None Exam: General - NAD, more energetic Eyes - PERRLA, EOM intact HEENT- no abnormality Cardiovascular - RRR no m/r/g, no JVD, no carotid bruits Lungs - Clear to auscltation, no use of acessory muscles, no crackles or wheezes. Skin - No rashes, skin warm and dry, no erythematous areas Abdomen - Normal bowel sounds, abdomen soft and nontender Extremeties - No edema, cyanosis or clubbing Musculo Skeletal - 5/5 strength, normal range of motion, no swollen or erythematous joints. Neurological Alert and oriented x 3, CN 2-12 grossly intact. Psychiatry- no hallucination, mood is good Result Diagrams: 02/25/19 05:13 02/25/19 05:13 Additional Lab and Data: Laboratory Tests 02/21/19 02/21/19 02/22/19 20:57 20:57 04:58 Calcium 11.5 H 10.1 Ionized Calcium 1.53 H Phosphorus 1.8 L Magnesium 1.7 L 2.0 AST 298 H ALT 108 H Total Creatine Kinase 4691 H Microbiology and Other Data: Microbiology 02/21/19 00:32 Urine Culture - Preliminary Urine Escherichia Coli Assess/Plan/Problems-Billing Assessment: 48 y/o female with history of seizure disorder, FRANCISCO, morbid obesity, presented as disorientation and fall, found to have hypercalcemia, elevated liver enzymes , rhabdomyolysis, urine tract infection. No unifying diagnosis was reached, but UTI is likely the trigerring event for fall and rhabdomyolysis. Her hypercalcemia with mildy raised PTH could indicate primary hyperparathyroidism, but malignancy such as MM needs to be ruled out. - Patient Problems (1) Hypercalcemia Current Visit: Yes Status: Acute Priority: High Code(s): E83.52 - HYPERCALCEMIA SNOMED Code(s): 16611716 Comment: - Improved w/ IV NS, calcitonin SC - Consulted template worker Dr. Ugalde, iv bisphosphonate is not indicated if calcium<11.5, - Dr Ugalde may arrange Dr. Bee to perform parathyroid surgery -IV hydration with good effect - nuclear parathyroid scan tomorrow (2) Liver enzyme elevation Current Visit: Yes Status: Acute Code(s): R74.8 - ABNORMAL LEVELS OF OTHER SERUM ENZYMES SNOMED Code(s): 009551910 Comment: possibly due to rhabdomyolysis CTAP normal (3) Rhabdomyolysis Current Visit: Yes Status: Acute Priority: Medium Code(s): M62.82 - RHABDOMYOLYSIS SNOMED Code(s): 766093244 Comment: -CPK trending down w/ IV hydration -No DARRYL as a result (4) Delusion Current Visit: Yes Status: Acute Code(s): F22 - DELUSIONAL DISORDERS SNOMED Code(s): 9675017 Comment: presented with active auditory hallucination, paranoon on initial admission largely resolved now (5) UTI (urinary tract infection) Current Visit: Yes Status: Acute Comment: urine c/s E.coli, sensitivity pending off ceftriaxone, oral cefdinir for another 3 days (6) DVT (deep venous thrombosis) Current Visit: Yes Status: Acute Code(s): I82.409 - ACUTE EMBOLISM AND THOMBOS UNSP DEEP VN UNSP LOWER EXTREMITY SNOMED Code(s): 837769485 Comment: sq lovenox (7) Full code status Current Visit: Yes Status: Acute Code(s): Z78.9 - OTHER SPECIFIED HEALTH STATUS SNOMED Code(s): 524657849 Status and Disposition: inpatient medicine Attestation Documenting Resident: Maggie Fairbanks Supervising Physician: Dawson Elam Attending/Supervising Physician Comment: Agree with plan as outlined in Dr. Fairbanks's note from today unless indicated. Stop IVF today and repeat calcium check tomorrow US thyroid parathyroid localization nuclear study tomorrow Endocrine surgery consult Attestation: This service has been performed in part by a resident under the direction of a teaching physician.I, Dawson Elam, performed the service, or was physically present during the critical, or arnold portions of the service, furnished by the resident. I participated in the management of the patient.
--- NOTE | 2019-02-25 14:49 | CONSULT ---
Consult Consult: Endocrinology Inpatient Consult Note Date of Consult: 02/25/19 Reason for Consult: PTH-mediated hypercalcemia Reason for Admission: AMS ASSESSMENT: 48 yo F with history of epilepsy and primary hyperparathyroidism, now admitted for altered mental status, UTI and hypercalcemia. Her presentation is consistent with symptomatic hypercalcemia made worse by dehydration and DARRYL. She has had a good clinical response to IVF + calcitonin this admission, although this medication is not recommended for long-term use. Her corrected calcium remains high at 11.7. She is a candidate for parathyroid surgery; bisphosphonate or Sensipar therapy is unlikely to be helpful. I recommend that she discontinue IVF and calcitonin at this time; if Ca>12 tomorrow, it may be necessary to pursue parathyroid surgery this admission. PLAN: - order thyroid ultrasound (done) - await parathyroid localization nuclear study - d/c IVF - d/c calcitonin - consult endocrine surgery (Dr. Angeli Bee) for parathyroid surgical eval (done ) SUBJECTIVE: 48 yo with history of epilepsy, now presenting with altered mental status. See admission note for details. Briefly, she was found down and disoriented by family members on 02/20/19. She had prominent neuropsychiatric symptoms and complained of lower extremity weakness and pain at time of admission. No GI symptoms. Regarding hypercalcemia and has been seen by [facility] several years ago and apparently had parathyroid localization studies. Note is made of Ca 10.2-10.9 in [id number]. She is unaware of the diagnosis made at that time, but was not recommended for surgery and did not return for follow-up. She recalls being treated with high-dose vitamin D several years ago and has taken both Ca/vitD supplements for several years until last month. She has no history of nephrolithiasis. PAST MEDICAL HISTORY: 1. Seizure disorder 2. Obesity 3. FRANCISCO PAST SURGICAL HISTORY: 1. x2 2. Tonsils/adenoids OUTPATIENT MEDS 1. Topamax 100 mg BID 2. Keppra 1000 mg BID ALLERGIES: AUGMENTIN INPATIENT MEDS: Calcitonin [place] (Miacalcin Inj*) 400 units SUBCUT Q12H [facility] Last Admin: 02/25/19 06:15 Dose: Not Given Cefdinir (Cefdinir Cap*) 300 mg PO BID CODY Stop: 02/27/19 09:01 Last Admin: 02/25/19 11:16 Dose: 300 mg Docusate Sodium (Colace Cap*) 100 mg PO BID [facility] Last Admin: 02/25/19 11:18 Dose: 100 mg Enoxaparin Sodium (Lovenox(*)) 40 mg SUBCUT Q24H [facility] Last Admin: 02/24/19 20:55 Dose: 40 mg Levetiracetam (Keppra Tab*) 1,000 mg PO BID [facility] Last Admin: 02/25/19 11:17 Dose: 1,000 mg Magnesium Hydroxide (Milk Of Magnesia Liq*) 30 ml PO BID PRN PRN Reason: CONSTIPATION Ondansetron HCl (Zofran Inj*) 4 mg IV Q4H [facility] Last Admin: 02/25/19 11:18 Dose: 4 mg Polyethylene Glycol/Electrolytes (Miralax*) 17 gm PO DAILY PRN PRN Reason: CONSTIPATION Last Admin: 02/24/19 08:09 Dose: 17 gm Senna (Senokot 8.6 Mg Tab*) 1 tab PO BEDTIME PRN PRN Reason: CONSTIPATION Topiramate (Topamax(*)) 100 mg PO BID [facility] Last Admin: 02/25/19 11:17 Dose: 100 mg OBJECTIVE: Temp Pulse Resp BP Pulse Ox 97.6 F 92 18 121/80 93 02/25/19 07:15 02/25/19 07:15 02/25/19 08:00 02/25/19 07:15 02/25/19 07:15 GEN: pleasant, AOx2, NAD ENT: normal neck and thyroid exam CV: RRR, no murmur CHEST: CTAB ABD: benign, obese EXT: no edema WBC 9.7 10^3/uL (3.5-10.8) 02/25/19 05:13 RBC 4.56 10^6 /uL (3.70-4.87) 02/25/19 05:13 Hgb 12.9 g/dL (12.0-16.0) 02/25/19 05:13 Hct 40 % (35-47) 02/25/19 05:13 MCV 87 fL (80-97) 02/25/19 05:13 MCH 28 pg (27-31) 02/25/19 05:13 MCHC 33 g/dL (31-36) 02/25/19 05:13 RDW 15 % (10-15) 02/25/19 05:13 Plt Count 282 10^3/uL (150-450) 02/25/19 05:13 MPV 8.5 fL (7.4-10.4) 02/25/19 05:13 Neut % (Auto) 68.4 % 02/25/19 05:13 Lymph % (Auto) 19.2 % 02/25/19 05:13 [place] % (Auto) 9.4 % 02/25/19 05:13 Eos % (Auto) 2.3 % 02/25/19 05:13 Baso % (Auto) 0.7 % 02/25/19 05:13 Absolute Neuts (auto) 6.6 10^3/ul (1.5-7.7) 02/25/19 05:13 Absolute Lymphs (auto) 1.9 10^3/ul (1.0-4.8) 02/25/19 05:13 Absolute Monos (auto) 0.9 10^3/ul (0-0.8) H 02/25/19 05:13 Absolute Eos (auto) 0.2 10^3/ul (0-0.6) 02/25/19 05:13 Absolute Basos (auto) 0.1 10^3/ul (0-0.2) 02/25/19 05:13 Absolute Nucleated RBC 0.0 10^3/ul 02/25/19 05:13 Nucleated RBC % 0.0 02/25/19 05:13 ESR 15 mm/Hr (0-29) 02/20/19 22:29 Sodium 138 mmol/L (135-145) 02/25/19 05:13 Potassium 3.8 mmol/L (3.5-5.0) 02/25/19 05:13 Chloride 111 mmol/L (101-111) 02/25/19 05:13 Carbon Dioxide 27 mmol/L (22-32) 02/25/19 05:13 Anion Gap 2 mmol/L (2-11) 02/24/19 05:16 BUN 11 mg/dL (6-24) 02/25/19 05:13 Creatinine 0.84 mg/dL (0.51-0.95) 02/25/19 05:13 Est GFR ( Amer) 86.8 (>60) 02/25/19 05:13 Est GFR (Non-Af Amer) 71.8 (>60) 02/25/19 05:13 BUN/Creatinine Ratio 13.1 (8-20) 02/25/19 05:13 Glucose 115 mg/dL (70-100) H 02/25/19 05:13 Lactic Acid 1.1 mmol/L (0.5-2.0) 02/21/19 02:36 Calcium 11.1 mg/dL (8.6-10.3) H 02/25/19 05:13 Ionized Calcium 1.55 mmol/L (1.16-1.32) H 02/23/19 05:38 Phosphorus 2.5 mg/dL (2.5-5.0) 02/25/19 05:13 Magnesium 2.0 mg/dL (1.9-2.7) 02/22/19 04:58 Total Bilirubin 0.30 mg/dL (0.2-1.0) 02/23/19 05:38 Direct Bilirubin 0.10 mg/dL (0.03-0.18) 02/22/19 04:58 Indirect Bilirubin 0.2 mg/dL (0.3-1.0) L 02/22/19 04:58 AST 218 U/L (13-39) H 02/23/19 05:38 ALT 109 U/L (7-52) H 02/23/19 05:38 Alkaline Phosphatase 72 U/L (34-104) 02/23/19 05:38 Ammonia 45 mcmol/L (16-53) 02/20/19 22:29 Total Creatine Kinase 855 U/L (10-223) H 02/24/19 05:16 Troponin I 0.05 ng/mL (<0.04) H* 02/21/19 02:36 C-Reactive Protein 93.21 mg/L (<8.01) H 02/20/19 22:29 Total Protein 5.8 g/dL (6.4-8.9) L 02/23/19 05:38 Albumin 3.3 g/dL (3.2-5.2) 02/23/19 05:38 Globulin 2.5 g/dL (2-4) 02/23/19 05:38 Albumin/Globulin Ratio 1.3 (1-3) 02/23/19 05:38 Vitamin B12 325 pg/mL (180-914) 02/21/19 08:24 25-OH Vitamin D Total 29.7 ng/mL (20-50) 02/21/19 08:26 Folate 9.42 ng/mL (>3.99) 02/21/19 08:24 TSH 3.16 mcIU/mL (0.34-5.60) 02/24/19 05:16 PTH Intact 63.9 pg/mL (12-88) 02/20/19 22:29 Calcium (PTH Intact) 13.5 mg/dL (8.6-10.3) H* 02/20/19 22:29 Urine Color [place] 02/21/19 00:32 Urine Appearance Cloudy 02/21/19 00:32 Urine pH 6.0 (5-9) 02/21/19 00:32 Ur Specific [place] 1.027 (1.010-1.030) 02/21/19 00:32 Urine Protein 2+(100 mg/dl) (Negative) A 02/21/19 00:32 Urine Ketones 1+ (Negative) A 02/21/19 00:32 Urine Blood 3+ (Negative) A 02/21/19 00:32 Urine Nitrate Positive (Negative) A 02/21/19 00:32 Urine Bilirubin Negative (Negative) 02/21/19 00:32 Urine Urobilinogen Positive (Negative) A 02/21/19 00:32 Ur Leukocyte Esterase Negative (Negative) 02/21/19 00:32 Urine WBC (Auto) 2+(11-20/hpf) (Absent) A 02/21/19 00:32 Urine RBC (Auto) 2+(6-10/hpf) (Absent) A 02/21/19 00:32 Urine Bacteria 1+ (Absent) A 02/21/19 00:32 Urine Collection Time 24 hr 02/22/19 22:00 Urine Total Volume 2950 mL 02/22/19 22:00 Ur Creatinine 24 Hour 1769.41 mg/24Hr (600-1800) 02/22/19 22:00 Ur Creatinine Concen 59.98 mg/dL 02/22/19 22:00 U Sodium Concentration 40 mmol/L 02/21/19 11:50 Urine Potassium 21.9 mmol/L 02/21/19 11:50 Ur Chloride Concentrat 95 mmol/L 02/21/19 11:50 Urine Glucose Negative (Negative) 02/21/19 00:32 U Tot [place] Light Ch 3.25 mg/dL (<0.9000) H 02/21/19 07:55 U Tot Lambda Light Ch 0.9990 mg/dL (<0.7000) H 02/21/19 07:55 Tot [place]/Lambda Ratio 3.25 02/21/19 07:55 Urine Opiates Screen None detected (None Detect) 02/21/19 00:32 Acetaminophen < 15 mcg/mL 02/20/19 22:29 Ur Barbiturates Screen None detected (None Detect) 02/21/19 00:32 Ur Phencyclidine Scrn None detected (None Detect) 02/21/19 00:32 Ur Amphetamines Screen None detected (None Detect) 02/21/19 00:32 U Benzodiazepines Scrn None detected (None Detect) 02/21/19 00:32 Urine Cocaine Screen None detected (None Detect) 02/21/19 00:32 U Cannabinoids Screen None detected (None Detect) 02/21/19 00:32 Serum Alcohol < 10 mg/dL (<10) 02/20/19 22:29 [place] Light Chain 1.97 mg/dL H 02/21/19 08:24 Lambda Light Chain 1.38 mg/dL 02/21/19 08:24 [place]/Lambda Ratio 1.43 02/21/19 08:24
[2019-02-25] MEDS: Polyethylene Glycol 3350* 17 GM PACKET PO PRN (17:26)
[2019-02-25] MEDS: Magnesium Hydroxide LIQ* 30 ML UDC PO PRN (17:26)
[2019-02-25] MEDS: Enoxaparin(*) 40 MG/0.4 ML SYR SUBCUT SCH (22:30)
[2019-02-26] MEDS: Ondansetron INJ* 2 MG/ML VIAL IV SCH ×4 (04:22→14:41)
[2019-02-26 05:14] LABS: Calcium 11.1 mg/dL (8.6-10.3); EGFR African American 89.3 (>60); EGFR Non-African American 73.8 (>60); Potassium 3.8 mmol/L (3.5-5.0)
[2019-02-26] MEDS: Docusate CAP* 100 MG PO SCH (10:07)
[2019-02-26] MEDS: Magnesium Hydroxide LIQ* 30 ML UDC PO PRN (10:07)
[2019-02-26] MEDS: Cefdinir cap* 300 MG CAP PO SCH (10:07)
[2019-02-26] MEDS: levETIRAcetam TAB* 500 MG PO SCH (10:07)
[2019-02-26] MEDS: Topiramate TAB(*) 100 MG PO SCH (10:08)
--- NOTE | 2019-02-26 13:20 | CONS ---
CONSULTATION REPORT: DATE OF CONSULT: 02/26/19 REASON FOR CONSULTATION: Primary hyperparathyroidism. HISTORY OF PRESENT ILLNESS: Ms. Polanco is a very pleasant 48-year-old female with history of epilepsy who had presented to the emergency room on 02/20/19 with altered mental status. Per the patient and medical records, she was found down at home by her family members and was unable to get up off the floor on her own. Per report, she was very confused and also somewhat delirious. Today , she recalls that she had a lot of muscular pain and numbness as well as nausea. She does not recall how long that she was down for and she does not remember falling. When she was brought to the emergency room, she was found to have a leukocytosis to 23 and an elevated lactic acid at 2.6. She had elevated LFTs and a calcium level that was 13.8. Imaging studies included a CT scan of the head that did not show any acute intracranial pathology. Given that she had an elevated transaminitis, she also had an abdominal CT scan that did not show any abnormal masses or fluid collections, but did note hepatic steatosis. She was found to have a urinary tract infection and was placed on antibiotics. Her hospital course has been significant for IV hydration and gradual improvement of her hypercalcemia. Her nausea and vomiting, she states, has improved significantly. She is able to tolerate a diet. She states that she still has muscle soreness including around her lateral neck and some numbness of her feet and she has some difficulty with moving her hands, but she is able to ambulate on her own without difficulty. Today, she has been afebrile. Her white count has normalized. Her calcium has decreased to 11.1, and on admission , her parathyroid hormone levels were 63.9. Currently, the patient states that she is feeling much better. Yesterday, she felt like her head was still somewhat swimming, but it is clear and appropriate today. Regarding the patient's past medical history, she states that she believes in 2012 she was found to have elevated calcium levels and was seen at [facility] in [place] regarding this. Per Dr. Ugalde's note, she was noted to have mildly elevated calcium levels at that time and no recommendation for surgery was made. The patient also recalls that she was given a high dose of vitamin D at that time. The patient denies any history of kidney stones. She has no other kidney disorders. She has broken her left foot in the past as a child. She has never had any neck surgery. There is no history of any hyperparathyroidism or endocrine disorders in her family. PAST MEDICAL HISTORY: Epilepsy, obstructive sleep apnea, obesity. PAST SURGICAL HISTORY: x2, tonsillectomy, and adenoidectomy. MEDICATIONS: 1. Topamax 100 mg b.i.d. 2. Keppra 1000 mg p.o. b.i.d. ALLERGIES: AUGMENTIN, the patient describes having a sensitivity to this medication. FAMILY HISTORY: Mom is living, has a history of hypertension. SOCIAL HISTORY: The patient is a former smoker. She does not drink alcohol. She is and has three children. PHYSICAL EXAM: Vital Signs: Temperature is 97.3, pulse is 68, respiratory rate is16, O2 sat 95% O2 on room air, blood pressure is 128/65. General: She is a well- appearing obese woman, sitting comfortably in chair, conversing easily and pleasantly. HEENT is normocephalic atraumatic. No thyromegaly. Abdomen is soft, nontender, nondistended. Extremities: No edema present. DIAGNOSTIC STUDIES/LAB DATA: Laboratory values on 02/26/19: Sodium is 135, potassium 3.8, chloride is 106, CO2 is 26, creatinine is 0.82, glucose is 112, calcium is 11.1. AST is 92, ALT is 132. Creatine kinase is 162. PTH on was 63.9. TSH on 02/24/19 was 3.16. 25-hydroxy vitamin D on 02/21/19 was 29.7. Calcium on 02/20/19 was 13.8. imaging studies: Sestamibi and thyroid ultrasound are pending. ASSESSMENT AND PLAN: Ms. Polanco is a very pleasant 48-year-old female with a history of epilepsy, obstructive sleep apnea, morbid obesity, and likely normal hormonal primary hyperparathyroidism. It appears that the patient had a urinary tract infection, was found down, developed rhabdomyolysis, became severely dehydrated which may have contributed to an acute elevation of her already high calcium levels to 13.8. Since being treated with IV fluids and treating her active infection, her transaminases have downtrended, her creatine kinase decreased, her calcium levels have decreased to 11.1, her white count has normalized, and she is overall symptomatically feeling much improved. Her PTH at the time of when her calcium level was 13.8 with only 63, which is somewhat unusual for classic primary hyperparathyroidism with such an elevated calcium level. It is most likely that the patient has mild primary hyperparathyroidism of the normal hormonal subtype, which was exacerbated by her acute dehydration and rhabdomyolysis. Today, she is going to undergo an ultrasound and a sestamibi scan for parathyroid adenoma localization. I have discussed at length the diagnosis with the patient as well as the management and workup. Since her calcium levels have decreased to 11.1, she may be discharged home in the next 1 to 2 days and can follow up with me as an outpatient in the next 1 to 2 weeks to complete her workup and discuss operative management and further workup as necessary. I have discussed this plan with her primary team, who are in agreement. [id number]/[facility] #: [id number] DOV
[2019-02-26 16:32] LABS: Urine Calcium 590 mg/24 h (<200); Urine Calcium Conc 20 mg/dL; Urine Collection Duration 24 h
[2019-02-26 16:32] LABS: Albumin/Globulin Ratio 0.96; Total Protein(PEP) 6.2 g/dL (6.3 - 7.9)
[2019-02-26 16:56] VITALS: BP 125/78
--- NOTE | 2019-02-26 21:20 | DS ---
CC: Dr. Yoder; Dr. Phill Kiran; Dr. Jonny Ugalde; Dr. Angeli Bee* DISCHARGE SUMMARY: DATE OF ADMISSION: 02/21/19 DATE OF DISCHARGE: 02/26/19 PRIMARY CARE PROVIDER: Dr. Yoder. DISPOSITION ON DISCHARGE: Home. CONDITION ON DISCHARGE: Improved/Good. PRIMARY DIAGNOSES: 1. Urinary tract infection. 2. Rhabdomyolysis. 3. Primary hyperparathyroidism. 4. Prediabetes. SECONDARY DIAGNOSES: Include: 1. Seizure disorder. 2. Obesity. 3. Obstructive sleep apnea. MEDICATIONS ON DISCHARGE: 1. Keppra 1000 mg twice daily. 2. Topamax 100 mg twice daily. 3. Magnesium hydroxide liquid 30 mL twice daily as needed for constipation 4. Cefdinir 30 mg twice daily for 2 additional days. PERTINENT LABORATORY DATA: White blood cell count on presentation 23,000, 9.7 on discharge. Calcium on presentation 13.8 and 11.1 on discharge. Hemoglobin A1c is 6.1%. SPEP impression, no monoclonal protein on serum electrophoresis. Urine toxicology is bland. 24-hour urine calcium is 590. This result is new. Urine total kappa light chain is 3.25, elevated, and urine total lambda light chain is 0.99, also elevated. Urine protein electrophoresis, interpretation is pending. AST 417, 92 on discharge; ALT 127, 132 on discharge; alk phos was 72, remained normal. HISTORY OF PRESENT ILLNESS AND HOSPITAL COURSE: This is a 48-year-old female with past medical history as outlined in the history of present illness on the day of admission, found on her floor naked by her children. When she awoke, was brought to the emergency room. She was delusional, talking about the [employer]. She was found to have hypercalcemia and [place] [address] on presentation. The hypercalcemia was thought to be the etiology of her delusion; however, later microbiology returned urine culture positive for E. coli. The patient's hypercalcemia and rhabdomyolysis were treated with vigorous IV crystalloids as well as calcitonin. She did not receive bisphosphonate. She was seen in consultation with both Endocrine Surgery and Endocrinology. Her calcium normalized, and it was noted that her PTH intact was 63.9, was inappropriately normal. Sequence of events leading to hospital stay is unclear. One possibility is that she had a urinary tract infection leading to dehydration and hypercalcemia, which may have led to her loss of consciousness and then rhabdomyolysis. A secondary diagnosis may have included hypercalcemia leading to her loss of consciousness and delusions and the urine may have been a colonization. The patient does have an underlying seizure disorder. All of the above may have put her in increased risk for seizure leading to her being found on the floor. There is no evidence of seizure during the hospital stay. She did have a parathyroid scan on the day of discharge, which was notable for questionable increased uptake superior to the thyroid isthmus, which indicates the presence of a parathyroid adenoma. Her thyroid ultrasound on the day of discharge indicated 2 subcentimeter nodules on the left lobe of the thyroid; however, low suspicion. In discussion with both Dr. Ugalde as well as Dr. Bee, thought that the patient should undergo a parathyroidectomy. Dr. Bee will see the patient in outpatient to arrange this procedure. On the day of discharge, the patient was stable. She was ambulating , interactive. Mental status was back to her baseline. Oropharynx is clear. She had regular rate and rhythm. Her lungs were clear. Extremities warm and well perfused. At followup please; 1. Follow up UPEP interpretation, elevated light chains as indicated above. 2. Ensure the patient follows with Dr. Bee. As noted above, her urinary calcium was also elevated. 3. Follow serum calcium level as deemed necessary, although it is noted that her calcium was elevated as early as 2012. 4. Follow hemoglobin A1c as necessary. The patient is currently prediabetic. 5. No other specific labs or vitals or any followup. Reasons to return to the hospital including, but not limited to, recurrent or worsening symptoms including loss of consciousness, near loss of consciousness, fevers, chills, night sweats, urinary symptoms, chest pain, shortness of breath , nausea, vomiting, bleeding from any source, inability to obtain or tolerate medications were discussed with the patient, she acknowledged understanding. TIME SPENT: Greater than 60 minutes was spent on the discharge of this patient , greater than half was spent [id number]. [id number]/[facility] #: [id number] DOV
[2019-02-27 16:04] LABS: Albumin 49 %; Albumin/Globulin Ratio 0.95 %; Gamma Globulin 12 %; Total Protein(PEP) Urine 34 mg/dL
--- NOTE | 2019-02-28 13:25 | EEG ---
ELECTROENCEPHALOGRAPHY: DATE OF STUDY: 02/21/19 - ROOM #411 REFERRING PROVIDER: Dr. Raymond. CLINICAL HISTORY: The patient presented to the emergency room on 02/21/19 with delusions and confusion. MEDICATIONS: Include: 1. Keppra. 2. Rocephin. 3. Topiramate. 4. Lovenox. REPORT: This 19-channel EEG is remarkable for background rhythms consisting of a well-formed alpha rhythm in the occipital derivations at 9 cycles per second, which is symmetric. Low voltage beta rhythms are seen bifrontally and centrally. The patient is awake. The patient drowses and falls asleep not long into the tracing with vertex slowing, vertex sharp waves, and parasagittal sleep spindles. Activation procedures were not attempted. Near the end of the recording, the patient awoke and was able to tell her name and location. There were no clinical events. There are no focal, lateralized or epileptiform abnormalities. CLINICAL IMPRESSION: Normal awake and asleep EEG. [id number]/[facility] #: [id number] [facility]
== END 2019-02-26 18:10 | disposition home or self-care (01) | DRG 424 ==
LOC: ED 20:40 → MED 02-21 00:24
PROVIDERS: ADMIT Hospitalist; ATTEND Internal Medicine
PROC: 009U3ZX Drainage of Spinal Canal, Percutaneous Approach, Diagnostic (ICD-10-PCS; principal; 2019-02-20)
PROC: 5A09357 Assistance with Respiratory Ventilation, Less than 24 Consecutive Hours, Continuous Positive Airway Pressure (ICD-10-PCS; 2019-02-21)
DX: E21.0 Primary hyperparathyroidism (principal); M62.82 Rhabdomyolysis; N39.0 Urinary tract infection, site not specified; N17.9 Acute kidney failure, unspecified; I82.409 Acute embolism and thrombosis of unspecified deep veins of unspecified lower extremity; E87.2 Acidosis; Z68.43 Body mass index [BMI] 50.0-59.9, adult; G40.909 Epilepsy, unspecified, not intractable, without status epilepticus; E86.0 Dehydration; G47.33 Obstructive sleep apnea (adult) (pediatric); E66.01 Morbid (severe) obesity due to excess calories; R74.8 Abnormal levels of other serum enzymes; F22 Delusional disorders; B96.20 Unspecified Escherichia coli [E. coli] as the cause of diseases classified elsewhere; F32.9 Major depressive disorder, single episode, unspecified; D72.829 Elevated white blood cell count, unspecified; R79.89 Other specified abnormal findings of blood chemistry; R73.03 Prediabetes; E04.1 Nontoxic single thyroid nodule; D36.7 Benign neoplasm of other specified sites; Z88.1 Allergy status to other antibiotic agents; Z82.49 Family history of ischemic heart disease and other diseases of the circulatory system; Z87.891 Personal history of nicotine dependence; Z98.51 Tubal ligation status; Z84.1 Family history of disorders of kidney and ureter
CPT/HCPCS: 36415; 70450; 71046; 72070; 74177; 76536; 78072; 80048; 80053; 80076; 80307; 80320; 80329; 81003; 81015; 82140; 82306; 82330; 82340; 82397; 82436; 82550; 82570; 82607; 82746; 83036; 83605; 83735; 83883; 83970; 84100; 84133; 84155; 84156; 84165; 84166; 84300; 84443; 84450; 84460; 84484; 85025; 85027; 85652; 86140; 87077; 87086; 87186; 93005; 94660; 95819; 99284; A9270-GY; A9500; G0480; J0630; J0696; J1650; J1940; J2405; J3475; Q9967

== ENCOUNTER → 2019-04-10 05:47 | Day surgery (SDC) | payer OTHER ==
[~2019-04-10 05:47] MED LIST: Acetaminophen TAB* 325 MG PO PRN; Buffered Lidocaine 1% SYRIN* 1 ML/SYRINGE INTRADERM ONE; Bupivacaine 0.25% SDV PF* 10 ML VIAL INJ ONE; Dexamethasone IV* 4 MG/ML 1 ML (4 MG) IV SLOW PU ONE; Dexamethasone IV* 4 MG/ML 1 ML (4 MG) ONE; DiMENhydriNATE IV* 50 MG/ML VIAL IV PUSH PRN; Famotidine IV* 10 MG/ML 2 ML (20 mg) ONE; Famotidine TAB* 20 MG ONE; Famotidine TAB* 20 MG PO ONE; Lactated Ringers 1000 ML Bag* 1,000 ML IV SCH; Lidocaine 1% INJ* 10 MG/ML 30 ML SDV ONE; Lidocaine 2% PF * 5 ML VIAL ONE; Midazolam* 1 MG/ML 2 ML VIAL (2 MG) ONE; Naloxone* 0.4 MG/ML 1 ML VIAL IV PRN; Ondansetron INJ* 2 MG/ML VIAL ONE; Phenylephrine 40 MCG/ML SYRINGE ONE; Propofol* 10 MG/ML 20 ML BTL ONE; Succinylcholine* 20 MG/ML 10 ML VIAL ONE; fentaNYL* 50 MCG/ML 2 ML VIAL (100 MCG VIAL) IV PRN; fentaNYL* 50 MCG/ML 2 ML VIAL (100 MCG VIAL) ONE; oxyCODONE/Acetamin 5/325 MG* TAB PO PRN
--- NOTE | 2019-04-10 14:35 | BRIEFOPN ---
Brief Operative/Procedure Note - Operation Details Pre-Op Diagnosis: hyperparathyroidism Post-Op Diagnosis: same Procedures: parathyroidectomy Surgeon(s)/Proceduralists: Rohit. Assist: HIRAL Nelson; APOORVA Osuna Anesthesia: GET Estimated Blood Loss: <20 ml Findings: as above Specimen(s)/Culture(s) Description: Left upper pole parathyroid gland Complications: none
--- NOTE | 2019-04-10 17:14 | OP ---
CC: Dr. Jonny Ugalde.* DATE OF OPERATION: 04/10/19 - SDS DATE OF : 66 SERVICE: General Surgery. SURGEON: Angeli Bee MD ANESTHESIOLOGIST: Jarrell Villatoro MD TUMBLER MACHINE OPERATOR HELPER: Phill Nelson MD PRE-OP DIAGNOSIS: Primary hyperparathyroidism. POST-OP DIAGNOSIS: Primary hyperparathyroidism. OPERATIVE PROCEDURE: Left upper parathyroidectomy. ESTIMATED BLOOD LOSS: Minimal, less than 10 cc. SPECIMENS: Left upper parathyroid. INDICATIONS FOR SURGERY: Ms. Polanco is a very pleasant 48-year-old female who had presented to the emergency room with critical hypercalcemia and altered mental status. She was found to have primary hyperparathyroidism. Further workup by her pastrycook showed that she had elevated urinary calcium. She met several criteria therefore for undergoing a parathyroidectomy. Preoperative localization studies did identify a left upper parathyroid adenoma on bedside ultrasound. She therefore gave informed consent for a parathyroidectomy. She understood that the risks included but were not limited to bleeding; infection; injury to nearby structures such as the recurrent laryngeal nerve. She also understood the alternatives and benefits and she wished to proceed. DESCRIPTION OF PROCEDURE: The patient was brought back to the operating room and placed on the operating room table in a supine position. Sequential compression devices were placed in the bilateral lower extremities for DVT prophylaxis. No antibiotics were administered. The patient is morbidly obese and there was difficulty obtaining additional peripheral IV access. A left radial A-line was also placed. After additional peripheral IV access was obtained, her arms were tucked and a time-out was performed prior to administering local anesthesia to the neck. Marcaine 0.25% plus 1% lidocaine was infiltrated into her anterior neck. After this was done, her neck was prepped and draped in normal sterile fashion. Then prior to the anesthesia, a second time-out was performed verifying the patient's name, date of , and the procedure to be performed, which is a parathyroidectomy. A 4 cm skin incision was made in the natural crease line, approximately 3 fingerbreadths above the sternal notch. The skin was divided down to the subcutaneous tissue. The platysma was divided and the inferior and superior subplatysmal flaps were developed. The median raphe between the strap muscles was identified and divided and the strap muscles were retracted laterally off of the isthmus of the thyroid. Once this was done, attention was turned towards the left thyroid lobe. On a preoperative ultrasound, she was found to have a very large left upper adenoma. The strap muscles were retracted laterally off of the left thyroid lobe. The middle thyroid vein was identified and divided and the thyroid lobe was retracted anteriorly and medially out of the neck using 2 peanuts. After this was done, the left upper parathyroid gland was noted to be rather posterior and extremely enlarged. It was dissected out of the surrounding areolar tissue and the pedicle was isolated and divided. At this point, sequential parathyroid hormone levels were obtained from her A-line. Her baseline had been drawn prior to the operation. T0 was drawn when the pedicle was taken. T5 was subsequently taken and then T10 was subsequently taken. The parathyroid hormone levels resulted as baseline at 53, T0 at 47.8, T5 was 23, and T10 was 16.6. At this point, given that the [place] criteria was met, the operation was concluded. Hemostasis was obtained in her lateral neck. Tisseel was placed. The strap muscles were reapproximated using 4-0 Vicryl sutures. The platysma was reapproximated using 4-0 Vicryl sutures. The skin was closed using a running 5-0 Prolene suture. Sterile dressing was then placed. The patient's anesthesia was reversed and she was taken to the PACU in stable condition. At the end of the case, all counts were correct and I was present during the entirety of the case. [id number]/[facility] #: [id number] DOV
[2019-04-10 18:31] VITALS: BP 118/73
== END | disposition home or self-care (01) ==
LOC: OR 05:47
PROVIDERS: ATTEND Surgery
DX: E21.0 Primary hyperparathyroidism (principal); G47.33 Obstructive sleep apnea (adult) (pediatric); Z87.891 Personal history of nicotine dependence; F41.8 Other specified anxiety disorders; G40.89 Other seizures
CPT/HCPCS: 36415; 83970; 88305; A9270-GY; C1776; J0330; J1100; J2250; J2405; J2704; J3010; J3490

== ENCOUNTER 2020-03-04 21:20 | Inpatient (IN) ==
[2020-03-04] MEDS: NS 0.9% 1000 ml BAG 2,000 ML IV ONE ×2 (22:08→23:36)
[2020-03-04 22:13] LABS: ABS Basophils 0.1 10^3/ul (0-0.2); ABS Eosinophils 0.2 10^3/ul (0-0.6); ABS Lymphocytes 2.3 10^3/ul (1.0-4.8); ABS Monocytes 0.8 10^3/ul (0-0.8); ABS Neutrophils 8.3 10^3/ul (1.5-7.7); Eosinophil % 2.1 %; Hematocrit 38 % (35-47); Hemoglobin 12.9 g/dL (12.0-16.0); Lymphocyte % 19.3 %; Mean Corpuscular HGB Conc 34 g/dL (31-36); Mean Corpuscular Hemoglobin 29 pg (27-31); Mean Corpuscular Volume 87 fL (80-97); Mean Platelet Volume 8.4 fL (7.4-10.4); Platelet Count 280 10^3/uL (150-450); Red Blood Count 4.38 10^6 /uL (3.70-4.87); Red Cell Distribution Width 16 % (10-15); White Blood Count 11.7 10^3/uL (3.5-10.8)
[2020-03-04 22:32] LABS: ALT 15 U/L (7-52); AST 16 U/L (13-39); Albumin 4.3 g/dL (3.2-5.2); Albumin/Globulin Ratio 1.7 (1-3); Alkaline Phosphatase 79 U/L (34-104); Anion Gap 7 mmol/L (2-11); Blood Urea Nitrogen 15 mg/dL (6-24); CO2 Carbon Dioxide 23 mmol/L (22-32); Calcium 9.2 mg/dL (8.6-10.3); Chloride 110 mmol/L (101-111); Creatine Kinase 35 U/L (10-223); EGFR African American 98.6 (>60); EGFR Non-African American 81.5 (>60); Globulin 2.6 g/dL (2-4); Glucose 100 mg/dL (70-100); Magnesium 1.9 mg/dL (1.9-2.7); Potassium 3.7 mmol/L (3.5-5.0); Sodium 140 mmol/L (135-145); Total Protein 6.9 g/dL (6.4-8.9)
[2020-03-04 22:46] LABS: TSH Ultra Thyroid Stim Horm 1.79 mcIU/mL (0.34-5.60)
[2020-03-04 23:37] LABS: Alcohol, S < 10 mg/dL (<10)
[2020-03-05 01:03] LABS: Urine Appearance Cloudy; Urine Bilirubin Negative (Negative); Urine Blood 2+ (Negative); Urine Color Yellow; Urine Glucose Negative (Negative); Urine Ketones Trace (Negative); Urine Nitrite Positive (Negative); Urine Protein Negative (Negative); Urine Specific Gravity 1.016 (1.010-1.030); Urine Urobilinogen Negative (Negative)
[2020-03-05 01:10] LABS: Urine Bacteria 1+ (Absent); Urine Red Blood Cell 2+(6-10/hpf) (Absent); Urine Squamous Epithelial Cell Present (Absent); Urine White Blood Cell 2+(11-20/hpf) (Absent)
[2020-03-05] MEDS ORDERED: cefTRIAXone 1 gm/50 mL NS BAG 1 GM/50 ML BAG IV ONE (01:24)
[2020-03-05 02:50] LABS: Urine Benzodiazepine Screen None Detected (None Detect); Urine Cannabinoids Screen Presumptive Positive (None Detect); Urine Opiates Screen None Detected (None Detect)
[2020-03-05] MEDS ORDERED: NS 0.9% 1000 ml BAG 1,000 ML IV SCH (04:45)
[2020-03-05 04:58] LABS: C Reactive Protein 11.27 mg/L (<8.01)
[2020-03-05] MEDS ORDERED: Valproic Acid IV 100 MG/ML 5 ML VIAL (500 MG) IVPB ONE (08:17)
[2020-03-05] MEDS ORDERED: Lorazepam PYXIS KEY ONE (08:20)
[2020-03-05] MEDS ORDERED: LORazepam 2 mg VIAL 1 ml ONE ×2 (08:21)
[2020-03-05] MEDS ORDERED: Valproic Acid IV 1,000 MG in NS 0.9% 100 ml BAG 100 ML IVPB ONE (09:00)
[2020-03-05] MEDS ORDERED: FOSPHENYTOIN 100 MG IVPB ONE (10:29)
[2020-03-05] MEDS ORDERED: [UNRECOGNIZED DRUG - OTHER] IVPB ONE (10:29)
[2020-03-05] MEDS ORDERED: Propofol 10 mg/ml 100 ML BTL 100 ML ONE (10:39)
[2020-03-05 10:49] LABS: ABS Basophils 0.1 10^3/ul (0-0.2); ABS Eosinophils 0.2 10^3/ul (0-0.6); ABS Monocytes 0.7 10^3/ul (0-0.8); ABS Neutrophils 7.4 10^3/ul (1.5-7.7); Eosinophil % 1.5 %; Hematocrit 36 % (35-47); Hemoglobin 12.3 g/dL (12.0-16.0); Lymphocyte % 19.4 %; Mean Corpuscular HGB Conc 34 g/dL (31-36); Mean Corpuscular Hemoglobin 30 pg (27-31); Mean Corpuscular Volume 87 fL (80-97); Mean Platelet Volume 8.5 fL (7.4-10.4); Platelet Count 244 10^3/uL (150-450); Red Blood Count 4.13 10^6 /uL (3.70-4.87); Red Cell Distribution Width 16 % (10-15); White Blood Count 10.3 10^3/uL (3.5-10.8)
[2020-03-05] MEDS ORDERED: Atropine 0.1 MG/ML 10 ml SYR (1 mg) ONE (10:55)
[2020-03-05] MEDS ORDERED: levETIRAcetam 1000MG IVPREMIX 1,000 MG/100 ML BAG IVPB SCH (11:00)
[2020-03-05] MEDS ORDERED: NS 0.9% IVPB ONE (11:00)
[2020-03-05] MEDS ORDERED: Etomidate 40 mg/20 ml (2 MG/ML) 20 ml VIAL (40 mg) ONE ×2 (11:00→11:04)
[2020-03-05] MEDS ORDERED: Propofol 10 MG/ML 20 ML BTL ONE (11:00)
[2020-03-05] MEDS ORDERED: FOSPHENYTOIN IVPB ONE (11:00)
[2020-03-05 11:04] LABS: Calcium 8.8 mg/dL (8.6-10.3); EGFR African American 95.6 (>60); Magnesium 1.8 mg/dL (1.9-2.7); Phosphorus 2.9 mg/dL (2.5-5.0); Potassium 3.9 mmol/L (3.5-5.0)
[2020-03-05] MEDS ORDERED: Propofol 10 mg/ml 100 ML BTL 100 ML IV SCH (12:00)
[2020-03-05] MEDS ORDERED: Chlorhexidine MOUTHWASH 0.12% 15 ML UDC SWISH SPIT SCH (12:00)
[2020-03-05] MEDS ORDERED: Chlorhexidine MOUTHWASH 0.12% 15 ML UDC TOPICAL SCH (12:00)
[2020-03-05 13:37] LABS: C Reactive Protein 13.33 mg/L (<8.01)
[2020-03-05 14:58] VITALS: BP 107/66
[2020-03-05] MEDS ORDERED: Enoxaparin 40 MG/0.4 ML SYR SUBCUT SCH (21:00)
[2020-03-06] MEDS ORDERED: cefTRIAXone 1 gm/50 mL NS BAG 1 GM/50 ML BAG IVPB SCH (05:00)
[2020-03-08 07:45] LABS: Topiramate 1.1 mcg/mL
[2020-03-10 12:43] LABS: Levetiracetam <2.0 mcg/mL
== END 2020-03-05 15:00 | disposition short-term general hospital (02) | DRG 52 ==
LOC: ED 21:20 → MED 03-05 04:31 → ICU 03-05 08:42
PROVIDERS: ADMIT Hospitalist; ATTEND Internal Medicine

== ENCOUNTER 2021-04-26 19:17 | Inpatient (IN) ==
[2021-04-26] MEDS ORDERED: NS 0.9% 1000 ml BAG 1,000 ML IV ONE (20:07)
[2021-04-26] MEDS ORDERED: levETIRAcetam 1000MG IVPREMIX 1,000 MG/100 ML BAG IVPB ONE (20:09)
[2021-04-26 21:21] LABS: ABS Basophils 0.1 10^3/ul (0-0.2); ABS Lymphocytes 1.8 10^3/ul (1.0-4.8); ABS Monocytes 1.2 10^3/ul (0-0.8); ABS Neutrophils 15.1 10^3/ul (1.5-7.7); Eosinophil % 0.1 %; Hematocrit 42 % (35-47); Lymphocyte % 9.9 %; Mean Corpuscular HGB Conc 34 g/dL (31-36); Mean Corpuscular Hemoglobin 30 pg (27-31); Mean Corpuscular Volume 89 fL (80-97); Mean Platelet Volume 8.6 fL (7.4-10.4); Platelet Count 324 10^3/uL (150-450); Red Blood Count 4.68 10^6 /uL (3.70-4.87); Red Cell Distribution Width 14 % (10-15); White Blood Count 18.2 10^3/uL (3.5-10.8)
[2021-04-26 21:39] LABS: ALT 16 U/L (7-52); AST 19 U/L (13-39); Albumin 3.9 g/dL (3.2-5.2); Albumin/Globulin Ratio 1.2 (1-3); Alkaline Phosphatase 74 U/L (35-149); Anion Gap 7 mmol/L (2-11); Blood Urea Nitrogen 17 mg/dL (6-24); CO2 Carbon Dioxide 26 mmol/L (22-32); Calcium 9.5 mg/dL (8.6-10.3); Chloride 106 mmol/L (101-111); Globulin 3.2 g/dL (2-4); Glucose 111 mg/dL (70-100); Potassium 4.1 mmol/L (3.5-5.0); Sodium 139 mmol/L (135-145); Total Protein 7.1 g/dL (6.4-8.9)
[2021-04-26 21:41] LABS: Troponin I 0.01 ng/mL (<0.03)
[2021-04-26 22:04] LABS: Alcohol, S < 13 mg/dL (<13)
[2021-04-26 23:21] LABS: Rapid COVID-19 Molecular Undetected (Undetected)
[2021-04-26 23:45] LABS: C Reactive Protein 40.39 mg/L (<8.01)
[2021-04-27 01:51] LABS: Urine Appearance Cloudy; Urine Bilirubin Negative (Negative); Urine Blood 2+ (Negative); Urine Color Yellow; Urine Glucose Negative (Negative); Urine Ketones Negative (Negative); Urine Nitrite Negative (Negative); Urine Protein Negative (Negative); Urine Specific Gravity 1.014 (1.002-1.030); Urine Urobilinogen Negative (Negative)
[2021-04-27 02:05] LABS: Urine Benzodiazepine Screen None Detected (None Detect); Urine Cannabinoids Screen Presumptive Positive (None Detect); Urine Opiates Screen None Detected (None Detect)
[2021-04-27 02:42] LABS: Urine Bacteria 1+ (Absent); Urine Red Blood Cell 3+(>10/hpf) (Absent); Urine Squamous Epithelial Cell Present (Absent); Urine White Blood Cell 3+(>20/hpf) (Absent)
[2021-04-27 03:11] LABS: Calcium 9.1 mg/dL (8.6-10.3); Potassium 3.4 mmol/L (3.5-5.0)
[2021-04-27] MEDS ORDERED: Potassium Chlor 20 meq TAB.ER PO ONE (06:14)
[2021-04-27] MEDS ORDERED: Lorazepam PYXIS KEY ONE (09:28)
[2021-04-27] MEDS ORDERED: LORazepam 2 mg VIAL 1 ml ONE (09:28)
[2021-04-27] MEDS: Enoxaparin 40 MG/0.4 ML SYR SUBCUT SCH (09:34)
[2021-04-27] MEDS: cefTRIAXone 1 gm/50 mL NS BAG 1 GM/50 ML BAG IVPB SCH ×2 (09:34→10:28)
[2021-04-27] MEDS ORDERED: levETIRAcetam IV 1,500 MG in NS 0.9% 100 ml BAG 100 ML IVPB ONE (09:37)
[2021-04-27] MEDS: NS 0.9% 1000 ml BAG 1,000 ML IV SCH (10:12)
[2021-04-27] MEDS ORDERED: LORazepam 2 mg VIAL 1 ml IV PUSH ONE (11:07)
[2021-04-27] MEDS ORDERED: Lorazepam PYXIS KEY PRN (11:07)
[2021-04-27] MEDS ORDERED: Buffered Lidocaine 1% SYRIN 1 ml INTRADERM ONE (11:16)
[2021-04-27] MEDS ORDERED: Valproic Acid IV 2,000 MG in NS 0.9% 100 ml BAG 100 ML IVPB ONE (12:30)
[2021-04-27] MEDS: levETIRAcetam 1000MG IVPREMIX 1,000 MG/100 ML BAG IVPB SCH (22:01)
[2021-04-27] MEDS: Valproic Acid IV 500 MG in NS 0.9% 100 ml BAG 100 ML IVPB SCH (22:04)
[2021-04-28] MEDS: NS 0.9% 1000 ml BAG 1,000 ML IV SCH (03:37)
[2021-04-28] MEDS: Valproic Acid IV 500 MG in NS 0.9% 100 ml BAG 100 ML IVPB SCH (07:02)
[2021-04-28] MEDS: Enoxaparin 40 MG/0.4 ML SYR SUBCUT SCH (07:03)
[2021-04-28] MEDS: levETIRAcetam 1000MG IVPREMIX 1,000 MG/100 ML BAG IVPB SCH (08:36)
[2021-04-28] MEDS: cefTRIAXone 1 gm/50 mL NS BAG 1 GM/50 ML BAG IVPB SCH (09:28)
[2021-04-28 13:12] LABS: Levetiracetam 19.6 mcg/mL
[2021-04-28 13:55] LABS: ABS Basophils 0.1 10^3/ul (0-0.2); ABS Eosinophils 0.2 10^3/ul (0-0.6); ABS Lymphocytes 1.7 10^3/ul (1.0-4.8); ABS Monocytes 0.6 10^3/ul (0-0.8); Eosinophil % 2.3 %; Hematocrit 37 % (35-47); Hemoglobin 12.6 g/dL (12.0-16.0); Lymphocyte % 17.4 %; Mean Corpuscular HGB Conc 34 g/dL (31-36); Mean Corpuscular Hemoglobin 30 pg (27-31); Mean Corpuscular Volume 88 fL (80-97); Mean Platelet Volume 8.4 fL (7.4-10.4); Platelet Count 277 10^3/uL (150-450); Red Blood Count 4.24 10^6 /uL (3.70-4.87); Red Cell Distribution Width 14 % (10-15); White Blood Count 9.5 10^3/uL (3.5-10.8)
[2021-04-28 14:12] LABS: Calcium 8.8 mg/dL (8.6-10.3); Magnesium 1.9 mg/dL (1.9-2.7); Phosphorus 2.2 mg/dL (2.5-5.0); Potassium 3.8 mmol/L (3.5-5.0)
[2021-04-28] MEDS ORDERED: diPHENhydraMINE IV 50 MG/ML 1 ml VIAL (BENADRYL) ONE (17:45)
[2021-04-28] MEDS ORDERED: diPHENhydraMINE IV 50 MG/ML 1 ml VIAL (BENADRYL) SLOW PUSH ONE (17:55)
[2021-04-29] MEDS: Enoxaparin 40 MG/0.4 ML SYR SUBCUT SCH (05:52)
[2021-04-29 06:45] LABS: ABS Eosinophils 0.3 10^3/ul (0-0.6); ABS Lymphocytes 1.5 10^3/ul (1.0-4.8); ABS Monocytes 0.7 10^3/ul (0-0.8); ABS Neutrophils 6.5 10^3/ul (1.5-7.7); Eosinophil % 3.7 %; Hematocrit 36 % (35-47); Lymphocyte % 16.8 %; Mean Corpuscular HGB Conc 34 g/dL (31-36); Mean Corpuscular Hemoglobin 30 pg (27-31); Mean Corpuscular Volume 89 fL (80-97); Mean Platelet Volume 8.1 fL (7.4-10.4); Platelet Count 267 10^3/uL (150-450); Red Blood Count 4.02 10^6 /uL (3.70-4.87); Red Cell Distribution Width 14 % (10-15); White Blood Count 9.1 10^3/uL (3.5-10.8)
[2021-04-29 07:09] LABS: Calcium 8.9 mg/dL (8.6-10.3); Magnesium 1.9 mg/dL (1.9-2.7); Phosphorus 3.7 mg/dL (2.5-5.0); Potassium 3.9 mmol/L (3.5-5.0)
[2021-04-29 11:32] VITALS: BP 125/80
[2021-04-29] MEDS: cefTRIAXone 1 gm/50 mL NS BAG 1 GM/50 ML BAG IVPB SCH (12:13)
== END 2021-04-29 16:40 | disposition home or self-care (01) | DRG 53 ==
LOC: ED 19:17 → SUATTDRO 23:44 → EDHOLD 23:44 → MEDTELE 04-27 03:46 → ICU 04-27 11:16 → SSU 04-28 18:42
PROVIDERS: ADMIT Internal Medicine; ATTEND Internal Medicine

== ENCOUNTER 2022-05-25 21:33 | Observation (INO) ==
[2022-05-25 22:52] LABS: ABS Basophils 0.1 10^3/ul (0-0.2); ABS Eosinophils 0.1 10^3/ul (0-0.6); ABS Lymphocytes 1.8 10^3/ul (1.0-4.8); ABS Monocytes 1.2 10^3/ul (0-0.8); ABS Neutrophils 10.7 10^3/ul (1.5-7.7); Hematocrit 46 % (35-47); Hemoglobin 15.1 g/dL (12.0-16.0); Lymphocyte % 12.7 %; Mean Corpuscular HGB Conc 33 g/dL (31-36); Mean Corpuscular Hemoglobin 29 pg (27-31); Mean Corpuscular Volume 89 fL (80-97); Platelet Count 331 10^3/uL (150-450); Red Blood Count 5.19 10^6 /uL (3.70-4.87); Red Cell Distribution Width 15 % (10-15); White Blood Count 13.8 10^3/uL (3.5-10.8)
[2022-05-25 22:56] LABS: INR 1.04 (0.89-1.11)
[2022-05-25] MEDS ORDERED: LORazepam 2 mg VIAL 1 ml IV PUSH ONE ×2 (23:30→23:36)
[2022-05-25] MEDS ORDERED: Lorazepam PYXIS KEY PRN ×2 (23:30→23:36)
[2022-05-25 23:31] LABS: ALT 26 U/L (7-52); AST 22 U/L (13-39); Albumin 4.1 g/dL (3.2-5.2); Albumin/Globulin Ratio 1.5 (1-3); Alkaline Phosphatase 77 U/L (35-149); Anion Gap 8 mmol/L (2-11); Blood Urea Nitrogen 17 mg/dL (6-24); CO2 Carbon Dioxide 27 mmol/L (22-32); Calcium 9.4 mg/dL (8.6-10.3); Chloride 105 mmol/L (101-111); Globulin 2.8 g/dL (2-4); Glucose 101 mg/dL (70-100); Potassium 4.3 mmol/L (3.5-5.0); Sodium 140 mmol/L (135-145); Total Protein 6.9 g/dL (6.4-8.9)
[2022-05-25] MEDS ORDERED: levETIRAcetam 1000MG IVPREMIX 1,000 MG/100 ML BAG IVPB ONE (23:31)
[2022-05-26] MEDS ORDERED: Valproic Acid IV 1,000 MG in NS 0.9% 100 ml BAG 100 ML IVPB ONE (00:01)
[2022-05-26 00:11] LABS: Valproic Acid < 13.0 mcg/mL (50-100)
[2022-05-26] MEDS ORDERED: Ondansetron 4 mg VIAL 2 MG/ML 2 ml VIAL IV PRN (02:59)
[2022-05-26] MEDS ORDERED: Lorazepam PYXIS KEY PRN ×2 (03:03→08:52)
[2022-05-26] MEDS ORDERED: LORazepam 2 mg VIAL 1 ml IV PUSH PRN (03:03)
[2022-05-26] MEDS ORDERED: LORazepam 2 mg VIAL 1 ml IV PUSH ONE (08:52)
[2022-05-26] MEDS ORDERED: levETIRAcetam 1000MG IVPREMIX 1,000 MG/100 ML BAG IVPB ONE (08:52)
[2022-05-26] MEDS ORDERED: Valproic Acid IV 100 MG/ML 5 ML VIAL (500 MG) IVPB ONE (08:52)
[2022-05-26] MEDS ORDERED: VALPROIC ACID 1000 MG IV - ED ONCE IVPB ONE (10:00)
[2022-05-26] MEDS ORDERED: Valproic Acid IV 1,500 MG in NS 0.9% 100 ml BAG 100 ML IVPB ONE (10:00)
[2022-05-26] MEDS ORDERED: Influenza vaccine *QUAD* *2022-23* 0.5 ML SYRINGE IM ONE (16:00)
[2022-05-26] MEDS ORDERED: COVID VACC, BIVAL PFIZER-TRIS 30 MCG/0.3 ML SYR IM ONE (16:00)
[2022-05-27 06:52] LABS: ABS Eosinophils 0.2 10^3/ul (0-0.6); ABS Lymphocytes 1.8 10^3/ul (1.0-4.8); ABS Monocytes 0.8 10^3/ul (0-0.8); ABS Neutrophils 5.8 10^3/ul (1.5-7.7); Eosinophil % 2.1 %; Hematocrit 40 % (35-47); Hemoglobin 13.2 g/dL (12.0-16.0); Lymphocyte % 20.8 %; Mean Corpuscular HGB Conc 33 g/dL (31-36); Mean Corpuscular Hemoglobin 29 pg (27-31); Mean Corpuscular Volume 88 fL (80-97); Mean Platelet Volume 7.9 fL (7.4-10.4); Nucleated Red Blood Cells % 0.1; Platelet Count 292 10^3/uL (150-450); Red Blood Count 4.52 10^6 /uL (3.70-4.87); Red Cell Distribution Width 14 % (10-15); White Blood Count 8.7 10^3/uL (3.5-10.8)
[2022-05-27 07:44] LABS: Calcium 8.9 mg/dL (8.6-10.3); Magnesium 1.9 mg/dL (1.9-2.7); eGFR CKD-EPI 86.7 (>60)
[2022-05-27 11:23] VITALS: BP 103/71
== END 2022-05-27 16:10 | disposition home or self-care (01) ==
LOC: ED 21:33 → EDHOLD 21:33 → SUATTDRO 05-26 03:00 → ICU 05-26 10:07 → SSU 05-27 01:51
PROVIDERS: ADMIT Student in an Organized Health Care Education/Training Program; ATTEND Internal Medicine

== ENCOUNTER 2023-09-10 07:10 | Inpatient (IN) ==
[2023-09-10] MEDS ORDERED: diazePAM INJ CARPUJECT 5 MG/ML SYRINGE IV PRN ×2 (11:30)
[2023-09-10] MEDS: Enoxaparin 40 MG/0.4 ML SYR SUBCUT SCH (12:46)
[2023-09-10] MEDS: CMCS: Zonisamide 100 mg CAP (NF) PO SCH (21:31)
[2023-09-11 06:59] LABS: Hematocrit 40.2 % (35-45); Hemoglobin 13.4 g/dL (11.5-14.3); Mean Platelet Volume 8.3 fL (7.5-11.2); Platelet Count 289 10^3/uL (150-450)
[2023-09-11 07:12] LABS: Creatinine, Serum 0.78 mg/dL (0.51-0.95); eGFR CKD-EPI 89.6 (>60)
[2023-09-11] MEDS: Levetiracetam XR 500 MG TAB.XR PO SCH (12:35)
[2023-09-11] MEDS: ZONISAMIDE 100 MG PO SCH (20:15)
[2023-09-14 09:02] VITALS: BP 144/93
[2023-09-15 17:31] LABS: Levetiracetam 19.3 mcg/mL
[2023-09-16 00:20] LABS: Zonisamide 8.9 mcg/mL (10-40)
== END 2023-09-14 12:37 | disposition home or self-care (01) | DRG 53 ==
LOC: MEDTELE 07:10 → SUATTDRO 07:10
PROVIDERS: ADMIT Psychiatry & Neurology Neurology; ATTEND Hospitalist